=== PATIENT | male | born 1930 | race Caucasian/White ===

== ENCOUNTER 2017-01-14 18:23 | Emergency (ER) | payer OTHER, BC ==
[2017-01-14 18:33] VITALS: BP 198/97; PULSE 67; RESP 16; TEMP 99.1; O2SAT 96
--- NOTE | 2017-01-14 19:19 | EDPHY ---
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 Patient's O2 was dressing was seen by his surgeon today who put a pressure dressing. Patient states he went home was doing well but started bleeding through again and has soaked his dressing. Denies any pain. No numbness or tingling. He takes an aspirin his not otherwise on any blood thinners. Not lightheaded. ROS: 10 point Review of Systems is negative except as noted in the HPI. Social History: [No] smoking, [no] alcohol, [ no recreational drug use] Family History: [non-contributory] Physical Exam: General: Awake, alert, no acute distress Left leg: Patient has a large skin defect in his left calf secondary to his melanoma resection. Is to the muscle fascia layer. There is scant amount of oozing. Sutures are intact in the surrounding area. Dressings were sent. No erythema or discharge. Neuro: Cranial nerves 2-12 intact. Sensations intact in bilateral upper lower extremities. - Personal History Current Tetanus/Diphtheria Vaccine: Unsure Current Tetanus Diphtheria and Acellular Pertussis (TDAP): Unsure - Medical/Surgical History Hx Asthma: No Hx Chronic Respiratory Disease: No Hx Diabetes: No Hx Cardiac Disease: No Hx Renal Disease: No Hx Cirrhosis: No Hx Alcoholism: No Hx HIV/AIDS: No Hx Splenectomy or Spleen Trauma: No - Social History Smoking Status: Never smoked Constitutional: Initial Vital Signs Temperature (C) 37.3 C 01/14/17 18:30 Heart Rate 67 01/14/17 18:30 Respiratory Rate 16 01/14/17 18:30 Blood Pressure 198/97 H 01/14/17 18:30 O2 Sat (%) 96 01/14/17 18:30 O2 Delivery Mode Room Air Allergies/Adverse Reactions: Opioids - Morphine Analogues Allergy (Verified 01/14/17 18:33) Penicillins Allergy (Verified 01/14/17 18:33) Medical Decision Making ED Course/Re-evaluation: I redressed the wound with surgery foam covered by a a nonadherent dressing, gauze and Coban for pressure dressing. Patient was or but had no further bleeding emergency department. He was discharge instructions follow up with surgeon in 2-3 days for recheck. He will return if has any further bleeding or any other concerns. Departure - Departure Disposition: Home, Routine, Self-Care Clinical Impression: Bleeding from wound Condition: Good Instructions: Postoperative Bleeding (ED) Additional Instructions: Your surgical site has been dressed with surgifoam, a nonadherent dressing, gauze and wrapped with Coban. Follow up with her surgeon in 2-3 days for wound check. Return to the emergency department for continued bleeding, worsening pain, discoloration or coldness of her left lower leg or foot, fevers, chills, or any other concerns. Referrals: NONE *PRIMARY CARE P,. [Primary Care Provider] - As per Instructions
== END 2017-01-14 19:22 | disposition home or self-care (01) ==
DX: L76.21 Postprocedural hemorrhage of skin and subcutaneous tissue following a dermatologic procedure (principal)

== ENCOUNTER → 2017-04-08 | Outpatient (CLI) | payer OTHER, BC | LOC: FIMAGING 14:26 | PROVIDERS: ATTEND Physician Assistant | DX: M25.511 Pain in right shoulder (principal); M19.011 Primary osteoarthritis, right shoulder; M25.411 Effusion, right shoulder; M24.011 Loose body in right shoulder; M75.111 Incomplete rotator cuff tear or rupture of right shoulder, not specified as traumatic ==

== ENCOUNTER → 2017-07-13 | Outpatient (CLI) | payer OTHER, BC | LOC: BMCIMAGING 08:39 | PROVIDERS: ATTEND Internal Medicine | DX: I71.4 Abdominal aortic aneurysm, without rupture (principal) ==

== ENCOUNTER 2017-09-07 10:19 | Emergency (ER) | payer OTHER, BC ==
--- NOTE | 2017-09-07 10:38 | CPEKG ---
Heart Rate: 71 RR Interval: 845 P-R Interval: 168 QRSD Interval: 152 QT Interval: 440 QTC Interval: 479 P Rosebud: 25 QRS Rosebud: -61 T Wave Rosebud: 27 EKG Severity - ABNORMAL ECG - EKG Impression: SINUS RHYTHM EKG Impression: RBBB AND LAFB Electronically Signed By: Pancho Wyatt 07-Sep-2017 11:07:22
--- NOTE | 2017-09-07 10:45 | EDPHY ---
H & P Stated Complaint: l upper abd/l cp x 1 month post surg skin cancer/hx aortic aneurysm Time Seen by Provider: 09/07/17 10:33 - Personal History Current Tetanus/Diphtheria Vaccine: Yes - Medical/Surgical History Hx Asthma: No Hx Chronic Respiratory Disease: No Hx Diabetes: No Hx Cardiac Disease: No Hx Renal Disease: No Hx Cirrhosis: No Hx Alcoholism: No Hx HIV/AIDS: No Hx Splenectomy or Spleen Trauma: No Other PMH: aortic aneurysm/ - Social History Smoking Status: Never smoked Constitutional: Initial Vital Signs Temperature (C) 36.5 C 09/07/17 10:23 Heart Rate 90 09/07/17 10:23 Respiratory Rate 17 09/07/17 10:23 Blood Pressure 181/100 H 09/07/17 10:23 O2 Sat (%) 96 09/07/17 10:23 O2 Delivery Mode Room Air Allergies/Adverse Reactions: Opioids - Morphine Analogues Allergy (Verified 09/07/17 10:21) Penicillins Allergy (Verified 09/07/17 10:21) Home Medications: Medication Instructions Recorded Areds 09/07/17 Atorvastatin Calcium 09/07/17 Medical Decision Making - Diagnostics Imaging Results: Imaging Impressions Chest X-Ray 09/07/17 10:57 Impression: Probable COPD with no definite acute findings. Abdomen CT 09/07/17 11:03 Impression: 1. There are numerous shotty upper abdominal lymph nodes, however with short axis diameters of under 1 cm, and a normal-sized spleen. Correlation with serum CBC with differential is nonetheless suggested, and if normal, repeat CT evaluation in 6 months to assure stability. 2. Small hiatal hernia. 3. There is a stable 3.0 cm infrarenal abdominal aortic aneurysm. 4. Sigmoid colon diverticulosis, without active diverticulitis. Findings were discussed with Pancho Wyatt MD at 12:25, on 09/07/2017. Imaging: Discussed imaging studies w/ salesperson driver Radiologist, I viewed and interpreted images myself ED Course/Re-evaluation: CHIEF COMPLAINT: Chest/rib pain HISTORY OF PRESENT ILLNESS: The patient is an 86 y/o male arriving with his complaining of intermittent chest/rib pain. 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 The pain is localized to the area near the excision and occasionally radiates up his left chest well slightly. He was reevaluated by his pyrotechnics press tender for this and advised to get a cardiac evaluation, but decided to wait and see if it would improve. Over the last week this pain has remained intermittent, but become increasingly severe. He describes it as dull and sometimes "burning" as various times. Pain is worse with palpation. He notes he had a negative PET scan last fall following melanoma resections. REVIEW OF SYSTEMS: A 10 point review of systems was performed and is negative with the exception of the elements mentioned in the history of present illness. PHYSICAL EXAM: HR, BP, O2 Sat, RR. Temp noted General Appearance: Alert, well hydrated, appropriate, and non-toxic appearing. Head: Atraumatic without scalp tenderness or obvious injury Eyes: Pupils equal, round, reactive to light and accommodation, EOMI, no trauma , no injection. Nose: Atraumatic, no rhinorrhea, clear. Throat: Mucus membranes moist. Neck: Supple. Respiratory: No retractions, no distress, no wheezes, and no accessory muscle use. Lungs are clear to auscultation bilaterally. Cardiovascular: Regular rate and rhythm, no murmurs, rubs, or gallops. Good capillary refill all extremities. Chest: Tenderness along costal border of 12th rib just left of xiphoid process. Gastrointestinal: Abdomen is soft, nontender, non-distended, no masses, no rebound, no guarding, no peritoneal signs. Musculoskeletal: Normal active ROM of all extremities, atraumatic. Neurological: Alert, appropriate, and interactive. The patient has non-focal cranial nerves, motor, sensory, and cerebellar exam. Skin: No rashes, good turgor, no nodules on palpation. Past medical history: Macular degeneration, aortic aneurysm Past surgical history: Multiple squamous cell and melanoma skin cancer resections Family history: Noncontributory Social history: at bedside. Lives in [place]. Retired. DIAGNOSTICS/PROCEDURES/CRITICAL CARE TIME: Chest x-ray: nothing acute Abdominal CT: numerous shotty lymph nodes, recommend follow up scan in 6 months The 12 lead EKG was interpreted by myself. Sinus mechanism rate 71, RBBB and LAFB. See hard copy and/or "tracemaster" electronic copy for interpretation. DIFFERENTIAL DIAGNOSIS: The differential diagnosis for the patient's chest pain included but was not limited to skin cancer, lymphadenopathy, shingles, myocardial ischemia, pulmonary embolus, chest wall pain, pleural inflammation, and pulmonary infectious causes. MEDICAL DECISION MAKING: This is a 86 y/o male with history of squamous cell and melanoma resections who presents with lower chest pain at the site of a squamous cell resection 1.5 months ago. Pain is reproducible with palpation along the costal border of the 12th rib just left of the xiphoid process. No visible trauma or lesions. Lungs are clear. Doubt cardiac etiology for symptoms, need to rule out metastatic disease. Plan for IV, labs, EKG, chest x-ray, abdominal CT. Chest x-ray, labs, and EKG are unremarkable. CT shows several shotty lymph nodes , recommended follow up scan in 6 months. Reassessed patient and discussed findings. He is comfortable with plan for discharge home and outpatient followup as needed. Return precautions discussed. - Data Points Laboratory Results: Laboratory Results 09/07/17 10:35 09/07/17 10:35 09/07/17 09/07/17 09/07/17 10:35 10:35 10:35 WBC 6.93 10^3/uL 10^3/uL (3.80-9.50) RBC 4.08 10^6/uL L 10^6/uL (4.40-6.38) Hgb 14.0 g/dL g/dL (13.7-17.5) Hct 39.6 % L % (40.0-51.0) MCV 97.1 fL fL (81.5-99.8) MCH 34.3 pg H pg (27.9-34.1) MCHC 35.4 g/dL g/dL (32.4-36.7) RDW 12.3 % % (11.5-15.2) Plt Count 200 10^3/uL 10^3/uL (150-400) MPV 8.4 fL L fL (8.7-11.7) Neut % (Auto) 47.1 % % (39.3-74.2) Lymph % (Auto) 40.1 % % (15.0-45.0) Ransom % (Auto) 10.7 % % (4.5-13.0) Eos % (Auto) 1.7 % % (0.6-7.6) Baso % (Auto) 0.3 % % (0.3-1.7) Nucleat RBC Rel Count 0.0 % % (0.0-0.2) Absolute Neuts (auto) 3.26 10^3/uL 10^3/uL (1.70-6.50) Absolute Lymphs (auto) 2.78 10^3/uL 10^3/uL (1.00-3.00) Absolute Monos (auto) 0.74 10^3/uL 10^3/uL (0.30-0.80) Absolute Eos (auto) 0.12 10^3/uL 10^3/uL (0.03-0.40) Absolute Basos (auto) 0.02 10^3/uL 10^3/uL (0.02-0.10) Absolute Nucleated RBC 0.00 10^3/uL 10^3/uL (0-0.01) Immature Gran % 0.1 % % (0.0-1.1) Immature Gran # 0.01 10^3/uL 10^3/uL (0.00-0.10) Sodium 142 mEq/L mEq/L (135-145) Potassium 4.1 mEq/L mEq/L (3.3-5.0) Chloride 106 mEq/L mEq/L (97-110) Carbon Dioxide 23 mEq/l mEq/l (22-31) Anion Gap 13 mEq/L mEq/L (8-16) BUN 18 mg/dL mg/dL (7-23) Creatinine 1.0 mg/dL mg/dL (0.7-1.3) Estimated GFR > 60 Glucose 116 mg/dL H mg/dL (70-100) Calcium 9.3 mg/dL mg/dL (8.5-10.4) Total Bilirubin 1.1 mg/dL mg/dL (0.1-1.4) Conjugated Bilirubin 0.4 mg/dL mg/dL (0.0-0.5) Unconjugated Bilirubin 0.7 mg/dL mg/dL (0.0-1.1) AST 47 IU/L IU/L (17-59) ALT 44 IU/L IU/L (21-72) Alkaline Phosphatase 86 IU/L IU/L (38-126) Troponin I 0.017 ng/mL ng/mL (0.000-0.034) Total Protein 6.9 g/dL g/dL (6.3-8.2) Albumin 4.1 g/dL g/dL (3.5-5.0) Lipase 108 IU/L IU/L (23-300) Departure - Departure Disposition: Home, Routine, Self-Care Clinical Impression: Lymphadenopathy, borderline Condition: Good Instructions: Lymphadenopathy (ED) Additional Instructions: 1. Follow up with your primary care provider this week for continued symptoms. 2. There were some slightly large lymphnodes on the CT you had performed today. Our radiologist recommends a follow up abdominal CT scan in 6 months to reevaluate these. 3. Return to the ED for any worsening of condition. Referrals: Shannon Baez MD [Primary Care Provider] - As per Instructions Report Scribed for: Pancho Wyatt Report Scribed by: Codi French Date of Report: 09/07/17 Time of Report: 12:30
[2017-09-07 11:03] LABS: PLATELET COUNT 200 10^3/uL (150-400)
[2017-09-07] MEDS ORDERED: IOPAMIDOL (ISOVUE-300) 100 ML BTL ONE (11:30)
[2017-09-07 12:51] VITALS: BP 155/83
== END 2017-09-07 12:50 | disposition home or self-care (01) ==
DX: R59.1 Generalized enlarged lymph nodes (principal)
CPT/HCPCS: 71046; 74177; 93005; 99285; Q9967

== ENCOUNTER 2018-01-13 17:25 | Observation (INO) | payer OTHER, BC ==
--- NOTE | 2018-01-13 17:57 | EDPHY ---
H & P Time Seen by Provider: 01/13/18 17:56 HPI/ROS: CHIEF COMPLAINT: Dizziness HISTORY OF PRESENT ILLNESS: 87-year-old man is scheduled to have aortic valve replacement appointment on Thursday as he has known aortic stenosis with a tight outlet and apparently high gradient. He woke up today at 7:30 a.m. With a sense of dizziness which she describes to me as "vertigo, spinning, woozy."He tells me that he did not actually have syncope or fainting. He does not have lightheadedness or presyncope. It is worse when he moves his head or sits up. This morning it was very mild and he was able to walk the dog and actually do 5- 6 laps in the pool but over the past couple hours the symptoms become very severe and he is now barely able to walk. Not associated with vomiting, worse with movement as above. REVIEW OF SYSTEMS: Eye: no change in vision ENT: no sore throat Cardiac: no chest pain or syncope Pulmonary: no cough or SOB Abdomen: no vomiting, diarrhea, abdominal pain Musculoskeletal: Chronic right shoulder pain, unchanged Skin: no rash Neuro: Mild occipital headache but no neck pain. Constitutional: no fever : no urinary symptoms A comprehensive 10 point review of systems is otherwise negative aside from elements mentioned in the history of present illness. PAST MEDICAL HISTORY: Includes squamous cell cancer, melanoma, aortic stenosis , macular degeneration. Social history: Here with his General Appearance: Alert and conversant, cooperative. Eyes: No scleral icterus. Pupils equal reactive extraocular motion intact. No nystagmus now. ENT, Mouth: Normal mucous membranes. Normal tympanic membranes. Respiratory: Normal respiratory effort, breath sounds equal, lungs are clear to auscultation. Cardiovascular: Regular rate and rhythm. 4-6 systolic murmur right upper sternal border. Gastrointestinal: Abdomen is soft and non tender. Neurological: Alert, face symmetric, normal motor and sensory in extremities. Finger to nose normal bilaterally although limited somewhat on the right arm because of shoulder pain. Speech fluent. Skin: Warm and dry, no rashes. Musculoskeletal: No peripheral edema. Psychiatric: Not agitated. Emergency Department course/MDM: Oral meclizine, noncontrast head CT to evaluate for possibility of cerebellar bleed given vertigo and mild posterior headache. Admission for control of symptoms; very unsteady on his feet per the , likely peripheral vertigo but very symptomatic and high fall risk especially with underlying aortic stenosis. 192: Results discussed with the patient. Negative noncontrast head CT. Smoking Status: Never smoked Constitutional: Initial Vital Signs Temperature (C) 36.5 C 01/13/18 17:30 Heart Rate 69 01/13/18 17:30 Respiratory Rate 18 01/13/18 17:30 Blood Pressure 166/87 H 01/13/18 17:30 O2 Sat (%) 98 01/13/18 17:30 O2 Delivery Mode Room Air Allergies/Adverse Reactions: Opioids - Morphine Analogues Allergy (Verified 01/13/18 17:29) Vomiting Penicillins Allergy (Verified 01/13/18 17:29) Unknown Home Medications: Medication Instructions Recorded Atorvastatin Calcium [Lipitor 40 80 mg PO DAILY 09/07/17 mg (*)] C/E/Zn/Cu/OM3/DHA/EPA/LUT/ZEAX 2 each PO BID 09/07/17 [Preservision Areds 2 Softgel] Acetaminophen [Tylenol 325mg (*)] 325 mg PO DAILY PRN 12/01/17 Glucosamine Sulfate [Glucosamine 500 mg PO BID 12/01/17 Sulfate 500 MG (*)] [place]-3 Fatty Acids [Fish Oil 1000 1,000 mg PO BID 12/01/17 mg (*)] Latanoprost 0.005% [Xalatan 0.005% 1 drops RTEYE DAILY 12/02/17 (*)] Famotidine [Pepcid 20 MG (*)] 20 mg PO DAILY PRN 01/13/18 Medical Decision Making - Diagnostics EKG Interpretation: 12-lead EKG interpreted by me; official reading is in computer system. My interpretation is sinus rhythm with right bundle branch block and left anterior fascicular block. Imaging Results: Imaging Impressions Head CT 01/13/18 18:12 Impression: There is no acute intracranial abnormality identified on this unenhanced CT evaluation. If there is further clinical concern regarding the patient's symptoms, MR imaging is suggested, if not otherwise contraindicated. Findings were discussed with JULIO CÉSAR JAIMES MD at 19:07, on 01/13/2018. Imaging: Discussed imaging studies w/ yardage caller Radiologist Differential Diagnosis: Differential diagnosis considered for dizziness including but not limited to peripheral and central causes of vertigo, aortic or vertebral dissection, orthostatic causes including dehydration, and blood loss. Consult/Admit Bed Type: [facility] - Data Points Laboratory Results: Laboratory Results 01/13/18 17:56 18 17:56 18 18 18 17:56 17:56 17:56 WBC 8.59 10^3/uL 10^3/uL (3.80-9.50) RBC 4.10 10^6/uL L 10^6/uL (4.40-6.38) Hgb 13.9 g/dL g/dL (13.7-17.5) Hct 40.0 % % (40.0-51.0) MCV 97.6 fL fL (81.5-99.8) MCH 33.9 pg pg (27.9-34.1) MCHC 34.8 g/dL g/dL (32.4-36.7) RDW 12.6 % % (11.5-15.2) Plt Count 201 10^3/uL 10^3/uL (150-400) MPV 8.5 fL L fL (8.7-11.7) Neut % (Auto) 43.9 % % (39.3-74.2) Lymph % (Auto) 40.3 % % (15.0-45.0) Sherman % (Auto) 14.0 % H % (4.5-13.0) Eos % (Auto) 1.3 % % (0.6-7.6) Baso % (Auto) 0.2 % L % (0.3-1.7) Nucleat RBC Rel Count 0.0 % % (0.0-0.2) Absolute Neuts (auto) 3.77 10^3/uL 10^3/uL (1.70-6.50) Absolute Lymphs (auto) 3.46 10^3/uL H 10^3/uL (1.00-3.00) Absolute Monos (auto) 1.20 10^3/uL H 10^3/uL (0.30-0.80) Absolute Eos (auto) 0.11 10^3/uL 10^3/uL (0.03-0.40) Absolute Basos (auto) 0.02 10^3/uL 10^3/uL (0.02-0.10) Absolute Nucleated RBC 0.00 10^3/uL 10^3/uL (0-0.01) Immature Gran % 0.3 % % (0.0-1.1) Immature Gran # 0.03 10^3/uL 10^3/uL (0.00-0.10) Sodium 139 mEq/L mEq/L (135-145) Potassium 4.1 mEq/L mEq/L (3.3-5.0) Chloride 105 mEq/L mEq/L (97-110) Carbon Dioxide 24 mEq/l mEq/l (22-31) Anion Gap 10 mEq/L mEq/L (8-16) BUN 22 mg/dL mg/dL (7-23) Creatinine 1.0 mg/dL mg/dL (0.7-1.3) Estimated GFR > 60 Glucose 97 mg/dL mg/dL (70-100) Calcium 9.4 mg/dL mg/dL (8.5-10.4) Troponin I Pending Medications Given: Discontinued Medications Meclizine HCl (Meclizine Hcl) 25 mg PO EDNOW ONE Stop: 01/13/18 18:13 Last Admin: 01/13/18 18:24 Dose: 25 mg Departure - Departure Disposition: [facility] Clinical Impression: Vertigo Condition: Good
[2018-01-13] MEDS ORDERED: MECLIZINE HCL 25 MG TAB PO ONE (18:12)
--- NOTE | 2018-01-13 18:17 | CPEKG ---
Test Reason : OPEN Blood Pressure : / mmHG Vent. Rate : 060 BPM Atrial Rate : 060 BPM P-R Int : 154 ms QRS Dur : 162 ms QT Int : 461 ms P-R-T Axes : 155 241 138 degrees QTc Int : 461 ms Sinus or ectopic atrial rhythm RBBB and LAFB Abnormal T, consider ischemia, lateral leads Confirmed by Chalo Dutton ([id number]) on 01/13/2018 6:16:39 PM Referred By: Confirmed By:Chlao Dutton
[2018-01-13 18:18] LABS: PLATELET COUNT 201 10^3/uL (150-400)
[2018-01-13] MEDS ORDERED: ACETAMINOPHEN 325 MG TAB PO PRN (21:21)
[2018-01-13] MEDS ORDERED: ONDANSETRON 4 MG/2 ML VIAL IVP PRN (21:21)
[2018-01-13] MEDS ORDERED: ONDANSETRON DISINTEGRATING 4 MG TAB PO PRN (21:21)
[2018-01-13] MEDS ORDERED: MECLIZINE HCL 12.5 MG TAB PO PRN (21:23)
[2018-01-13] MEDS ORDERED: FAMOTIDINE 20 MG TAB PO PRN (21:23)
[2018-01-13] MEDS ORDERED: NS 1,000 ML IV SCH (21:30)
--- NOTE | 2018-01-13 21:59 | GHP ---
DATE OF ADMISSION: 01/13/2018 The patient is a pleasant 87-year-old gentleman with a history of recently diagnosed aortic stenosis, who presents with vertigo-like symptoms. He is scheduled for a shoulder replacement. He had a preo perative evaluation that revealed a systolic murmur. Subsequent evaluation revealed a critical aorti c stenosis with a valve area of 0.95 cm gradient, unknown whom he has been cared for at [facility]. He is scheduled to see somebody next week to talk about TAVR. It does not seem that he h as spoken to a cardiothoracic surgeon. The patient actively exercises. Today he swam. He did not a ctually feel great swimming and he had some vertigo-like symptoms. He does have a history of periphe ral vertigo and he has felt somewhat to that, but when I really dig down to the history, it is not en tirely clear that the room was spinning, and there may have been some orthostatic-like symptoms. It sounds like his workout was limited today by generalized fatigue. He does not have lower extremity e erna. He does not have angina though he does note some lateral left-sided chest pain that did occur at 1 time. He does not have a history of coronary disease. He has hyperlipidemia, takes a statin. He has been physically active all his life, having run 25 marathons and being a daily swimmer. REVIEW OF SYSTEMS: Complete 10-point review of systems conducted and negative except as noted in the HPI. PAST MEDICAL HISTORY: Macular degeneration with severe visual impairment, critical aortic stenosis, history of vertigo, hyperlipidemia. ALLERGIES: Opioids, penicillins. HOME MEDICATIONS: Tylenol, atorvastatin, PreserVision, famotidine, glucosamine, latanoprost, fish oi l. SOCIAL HISTORY: He is a retired airplane electrical repairer. Nonsmoker, nondrinker. . Lives in his own house independently and proficient in ADLs. PHYSICAL EXAMINATION: VITAL SIGNS: Temp 36.8, blood pressure 175/84, pulse 60, breathing 16 times a minute, 98% on room air. GENERAL: No acute distress. HEENT: Sclerae anicteric. Oropharynx clear . Mucous membranes moist. NECK: Supple without lymphadenopathy or JVD. LUNGS: Clear to auscultat ion bilaterally. HEART: S1, S2 with a 4/6 systolic ejection murmur heard best at the right upper st ernal border. ABDOMEN: Soft, nontender, nondistended. LOWER EXTREMITIES: Without edema. Calves n ontender. SKIN: Without rash. NEUROLOGIC: Nonfocal. LABS AND IMAGING: White count 9, hematocrit 40, platelets are 201. Chem-7 is normal. Troponin is 0 .021. EKG, interpreted by me, shows sinus at 60, with left axis deviation, right bundle branch and left ant erior fascicular block pattern. There is no ST or T-wave changes. There is no prior for comparison. Head CT shows no acute intracranial abnormality. I discussed case with Dr. Chalo Dutton. ASSESSMENT/PLAN: 87-year-old gentleman with severe aortic stenosis, presents with possible vertigo. 1. Vertigo. I do have some concerns about that this is the actual diagnosis given his critical aort ic stenosis. That said, he did have improvement of his symptoms with meclizine. He does not have ny stagmus on exam with lateral eye movement nor with rapid turning of his head. He did not clearly joy cribe the room spinning. That said, we will continue p.r.n. meclizine. Will have Physical Therapy a nd Occupational Therapy see him. 2. Aortic stenosis. He has an outpatient plan through [facility] where he gets his care to evaluate this, so I am not going to reinvent the workup at this time. That said, I am going to c heck orthostatic vital signs and trend his troponin and follow him on telemetry. 3. If these things become more concerning, then further workup may be a good idea. 4. Macular degeneration. Continue his eye drops. 5. Hyperlipidemia. Continue statin. 6. Prophylaxis. Sequential compression devices. The patient is admitted observation status. DISPOSITION: Observation. /[id number]/MODL
[2018-01-14] MEDS ORDERED: OMEGA-3 FATTY ACIDS 1,000 MG CAP PO SCH (09:00)
[2018-01-14] MEDS ORDERED: ATORVASTATIN CALCIUM 40 MG TAB PO SCH (09:00)
[2018-01-14] MEDS ORDERED: LATANOPROST 0.005% 2.5 ML OPHT DROPS RTEYE SCH (09:00)
[2018-01-14] MEDS ORDERED: GLUCOSAMINE SULF 500 MG CAP PO SCH (09:00)
[2018-01-14] MEDS ORDERED: PRESERVISION AREDS2 FORMULA EYE VIT 1 EACH PO SCH (09:00)
--- NOTE | 2018-01-14 10:29 | ASMTCMCOM ---
CM Note CM Note Notes: Patient admitted with vertigo overlaid on a new dx of aortic stenosis. He is being followed at [facility] for this. His vertigo symptoms are resolving with Meclizine. PT/OT have worked with him and cleared him for home; he is normally very active. PT did mention that cardiac rehab might be appropriate. Will pass along to hospitalist. Date Signed: 01/14/2018 10:28 AM Electronically Signed By:Rosa Nazario RN
--- NOTE | 2018-01-14 12:30 | PDDCSUM ---
Discharge Summary Discharge Summary: Date of Admission: 01/13/2018 Date of Discharge: 01/14/2018 Consults: N/A Followup: Cardiology appointment on Thursday with Dr. Garay Hospital Course Problem List: Vertigo - Feeling dizzy, LH on admission, has had episodes of vertigo in the past - Orthostatic vitals negative - Symptoms improved with Meclazine - Symptoms may be related to aortic stenosis, he has appt on Thursday for TAVR evaluation - Head CT normal on admission Aortic Stenosis - Recently diagnosed - Followup with cardiology on Thursday with Dr. Garay for TAVR evaluation - Discussed with patient if he would like to be seen by cardiology while IP which he deferred HLD - Continue home statin Time spent on discharge was >35 minutes with >50% of time spent on patient education and counseling
--- NOTE | 2018-01-14 13:41 | ASMTCMCOM ---
CM Note CM Note Notes: Pt [facility] Medical Education Specialist Dang [phone] came to visit pt. Dang will set up an [employer] functional eval for [employer], apparently this eval did not happen for some reason after pt d/c from [facility] in November 2017. D/c plan remains home with [facility] Date Signed: 01/14/2018 01:40 PM Electronically Signed By:RADAMES Hernandez
--- NOTE | 2018-01-14 13:54 | ASMTCMCOM ---
CM Note CM Note Notes: Please disregard CM note 01/14/18 13:40 it does not apply to pt Date Signed: 01/14/2018 01:53 PM Electronically Signed By:RADAMES Hernandez
--- NOTE | 2018-01-14 13:55 | ASMTLACE ---
LACE Length of stay for Answers: 2 days current admission Acuity / Level of Answers: No Care: Did the patient have an inpatient admission? Comorbidities - select Answers: Other Notes: Macular degeneration; H LD all that apply # of Emergency department Answers: 1-2 visits in the last 6 months Score: 4 Date Signed: 01/14/2018 01:54 PM Electronically Signed By:RADAMES Hernandez
[2018-01-14 14:15] VITALS: BP 155/78
== END 2018-01-14 15:29 | disposition home or self-care (01) ==
LOC: F3N 20:35
PROVIDERS: ADMIT Internal Medicine; ATTEND Internal Medicine
DX: R42 Dizziness and giddiness (principal); I35.0 Nonrheumatic aortic (valve) stenosis; E78.5 Hyperlipidemia, unspecified; H35.30 Unspecified macular degeneration
CPT/HCPCS: 70450; 93005; 97112; 97161; 97165; 97530; 99285; G0378; G8978; G8979; G8987; G8988; G8989

== ENCOUNTER 2018-01-27 07:20 | Day surgery (SDC) | payer OTHER, BC ==
[~2018-01-27 07:20] MED LIST: ASPIRIN EC 325 MG TAB PO ONE; DIAZEPAM 5 MG TAB PO ONE; FAMOTIDINE 20 MG TAB PO ONE; NS 1,000 ML IV ONE; diphenhydrAMINE 25 MG CAP PO ONE
[2018-01-27] MEDS ORDERED: FAMOTIDINE 20 MG TAB ONE (07:46)
[2018-01-27] MEDS ORDERED: ASPIRIN EC 325 MG TAB PO ONE (07:46)
[2018-01-27] MEDS ORDERED: diphenhydrAMINE 25 MG CAP PO ONE (07:46)
[2018-01-27] MEDS ORDERED: DIAZEPAM 5 MG TAB ONE (07:47)
[2018-01-27 08:16] LABS: PLATELET COUNT 181 10^3/uL (150-400)
[2018-01-27 08:20] LABS: INR 0.93 (0.83-1.16); PROTIME(PATIENT) 12.7 SEC (12.0-15.0)
[2018-01-27] MEDS ORDERED: LIDOCAINE 1% 300 MG/30 ML SDV ONE (09:06)
[2018-01-27] MEDS ORDERED: IOPAMIDOL (ISOVUE-370) 150 ML BTL IV ONE (09:07)
[2018-01-27] MEDS ORDERED: MIDAZOLAM 2 MG/2 ML VIAL ONE (09:07)
--- NOTE | 2018-01-27 09:19 | PDPROPOC ---
Sedation Plan of Care Sedation Plan of Care: mental status noted, patient educated of risks, benefits , alternatives, patient can tolerate sedation ASA Classification: ASA 2 Planned drugs: fentanyl, midazolam Mallampati Score: Class 2 Mallampati Reference Image: Patient passed 3-3-2 rule?: Yes
--- NOTE | 2018-01-27 09:19 | PDHPUP ---
History & Physical Update H&P update statement: This history and physical update is based on an assessment of the patient which was completed after admission or registration (within 24 hours), but prior to the surgery/procedure. H&P update: H&P reviewed & patient examined, no change in patient's condition since H&P completed
[2018-01-27] MEDS ORDERED: CLOPIDOGREL BISULFATE 75 MG TAB ONE (09:27)
[2018-01-27] MEDS ORDERED: CLOPIDOGREL BISULFATE 75 MG TAB PO ONE (09:30)
[2018-01-27] MEDS ORDERED: fentaNYL 100 MCG/2 ML INJ ONE (10:04)
[2018-01-27] MEDS ORDERED: ATROPINE SULFATE 1 MG/10 ML SYR IVP PRN (10:30)
[2018-01-27] MEDS ORDERED: ONDANSETRON 4 MG/2 ML VIAL IVP PRN (10:30)
[2018-01-27] MEDS ORDERED: NITROGLYCERIN 0.4 MG BTL SL PRN (10:30)
--- NOTE | 2018-01-27 11:09 | CPIP ---
DATE OF PROCEDURE: 01/27/2018 INDICATION FOR PROCEDURE: Critical aortic stenosis. PROCEDURE: 1. Nonselective left groin sheathogram. 2. 7-Gabonese sheath left common femoral vein. 3. Right heart catheterization with [place]-Jody catheter. 4. Bilateral selective coronary angiography. 5. Abdominal aortogram. HISTORY: Briefly, this is an 87-year-old male with history of critical aortic stenosis, worsening di nella h[place] who was being worked up for potential TAVR. DESCRIPTION OF PROCEDURE: After informed consent was obtained, the patient was brought to [facility] where the left groin was prepped and draped in sterile fashion. Using lidocaine, a short 6-Gabonese sheath w as introduced in the left common femoral artery verified angiographically, upsized to a 7-Gabonese aguilar th left common femoral vein. Through the 7-Gabonese sheath, a [place]-Jody catheter was advanced. Wedge pressure was mean of 16, A-wave 20, V-wave 26, PA pressure systolic 35, diastolic 12, mean of 22. RV pressure systolic 39, diastolic 4, end of 9, RA pressure mean of 8, A-wave 13, V-wave 10. Cardiac o utput was measured to be 4.5 with a Jono index of 2.4. AO sat 98%. PA sat 74%. [place]-Jody catheter was then removed. At this time, given the tortuosity of the aortoiliac circulation, we decided to up size the 6-Gabonese sheath to a 25 cm sheath through a JR4 catheter and a stiff wire. After this was p erformed, a JL4 catheter was advanced to the left coronary artery. Images of the left coronary arter y revealed normal large left main. Left circumflex gave off a large bifurcating marginal system prox imally and there was a 3rd marginal in the mid body which was healthy and free of disease and termina ting into an AV groove of 4th marginal, which was healthy and free of disease. The LAD was healthy a nd free of disease giving off a medium to large diagonal artery in the midportion. After these image s were obtained, the JR4 catheter was removed. The JR4 catheter was advanced to the right coronary a rtery. Images of the right coronary artery revealed normal os, prox mid, RPDA and RPLS. After these images were obtained, a JR4 catheter was removed. The pigtail catheter was advanced to the distal d escending aorta where an abdominal aortogram was obtained which showed patent descending aorta. Ther e was an aneurysm of the distal aorta. There was widely patent common iliac, external and internal i liac arteries. , the pigtail catheter was then removed over the 0.035 wire. The left groi n was closed with manual pressure. Patient tolerated the procedure well with no complications. IMPRESSION: 1. Normal coronary arteries. 2. Normal cardiac output with normal pulmonic pressures. 3. abdominal aortic aneurysm with widely patent aortoiliac conduit. PLAN: The patient will have 3 hours bed rest. Will have a carotid ultrasound done later this dwayne person Discharged later this afternoon to follow up with us in the office to discuss potential TAVR in t he next week. /[id number]/MODL
--- NOTE | 2018-01-27 13:08 | ECHO ---
[email or web address] [address] [address] Main: [phone] Fax: Transthoracic Echocardiogram Name: SHIVANI BARRERA MR#: [id number] Study Date: 01/27/2018 Study Time: 08:12 AM Date of : 1930 Age: 87 year(s) Height: 177.8 cm (70 in.) Weight: 66.68 kg (147 lb.) BSA: 1.83 m2 Gender: Male Examination: Echo Indication: Image Quality: Adequate Contrast: Requested by: Edison Avalos BP: 148 mmHg/80 mmHg Heart Rate: Rhythm: Indication: Procedure Staff Postdoctoral Scholar: Veronica Sullivan RDCS Reading Physician: Edison Avalos MD Requesting Provider: Conclusions: Moderate concentric LV hypertrophy. EF is 62 %. Mild mitral valve regurgitation is present. Severe calcific aortic valve stenosis. Mild to moderate aortic valve regurgitation. Mild tricuspid regurgitation is present. Measurements: Chambers Valvular Assessment AV/MV Valvular Assessment TV/PV Normal Normal Normal Name Value Range Name Value Range Name Value Range Ao Soledad (2D): 3.3 cm (1.4 cm-2.6 AV Vmax: 4.84 m/s (1 m/s-1.7 TR Vmax: 1.89 mm/s ( - ) cm) m/s) TR PGmax: 14 mmHg ( - ) IVSd (2D): 1.6 cm (0.6 cm-1.1 AV maxP mmHg ( - ) syst. PAP: 19 mmHg ( - ) cm) AV meanP mmHg ( - ) PV Vmax: 0.92 m/s (0.6 m/s-0.9 LVDd (2D): 4.8 cm (4.2 cm-5.9 FINN (VTI): 0.8 cm ( - ) m/s) cm) MV E Vmax: 0.46 m/s ( - ) PV PGmax: 3 mmHg ( - ) LVDs (2D): 3.1 cm (2.1 cm-4 MV A Vmax: 0.95 m/s ( - ) cm) MV E/A: 0.48 ( - ) LVPWd (2D): 1.5 cm (0.6 cm-1 cm) MV PHT: 0.114 s ( - ) LVOTd 2.2 cm 2.2 cm mm MVA (PHT): 1.9 s ( - ) LVEF (BP): 62 % (>=55 %) RVDd(2D): 3.3 cm (1.9 cm-3.8 cmmm) Continued Measurements: Chambers Valvular Assessment AV/MV Valvular Assessment TV/PV Name Value Name Value Name Value Patient: SHIVANI BARRERA Study Date: 01/27/2018 Page 1 of 2 08:12 AM LADs: 3.6 cm MV DecTime: 356 m/s CVP (est.): 5 mmHg LADs Lon.4 cm MV E' Septal: 0.06 m/s LA Area: 22.0 cm2 MV E/E' Septal: 8.10 LA Volume: 78 ml MV E/E' Lateral: 9.50 LA Volume Index: 42.6 ml/m2 RA Area: 18.6 cm2 Additional Vessels Name Value Ao Ascendin.7 cm Inferior Vena Cava: 0.8 cm Findings: Left Ventricle: Normal size left ventricle. Moderate concentric LV hypertrophy. Normal global systolic LV function. EF is 62 %. No regional wall motion abnormality. Unable to assess diastolic dysfunction. Right Ventricle: Normal size right ventricle. Normal RV function. Left Atrium: The left atrium is moderately dilated. Right Atrium: The right atrium is borderline dilated. Mitral Valve: The mitral valve is normal in appearance and function. Mild mitral valve regurgitation is present. No mitral stenosis is present. Aortic Valve: The aortic valve is tri-leaflet. Restricted opening movement of the aortic valve is present. Severe calcific aortic valve stenosis. Mild to moderate aortic valve regurgitation. Tricuspid Valve: The tricuspid valve is normal in appearance and function. Mild tricuspid regurgitation is present. The pulmonary artery pressure is normal. Right ventricular systolic pressure measures 19mmHg. Pulmonic Valve: The pulmonic valve is normal in appearance and function. Trivial pulmonic valve regurgitation. Aorta: The aorta is normal. Normal size aortic root measuring 3.3 cm. Normal size ascending aorta measuring 3.7 cm. IVC: The IVC is normal sized. Pericardium: No pericardial effusion. No pleural effusion. (No Signature Object) Patient: SHIVANI BARRERA Study Date: 01/27/2018 Page 2 of 2 08:12 AM [id number]
--- NOTE | 2018-01-27 16:41 | CPEKG ---
Test Reason : OPEN Blood Pressure : / mmHG Vent. Rate : 070 BPM Atrial Rate : 070 BPM P-R Int : 153 ms QRS Dur : 166 ms QT Int : 450 ms P-R-T Axes : 030 -64 059 degrees QTc Int : 486 ms Sinus rhythm RBBB and LAFB Confirmed by Estrella Mclean ([id number]) on 01/27/2018 4:40:53 PM Referred By: Confirmed By:Estrella Mclean
== END 2018-01-27 14:20 | disposition home or self-care (01) ==
LOC: FCATH 07:20
PROVIDERS: ATTEND Internal Medicine Cardiovascular Disease
PROC: 4A023N6 Measurement of Cardiac Sampling and Pressure, Right Heart, Percutaneous Approach (ICD-10-PCS; principal; 2018-01-27)
PROC: B2111ZZ Fluoroscopy of Multiple Coronary Arteries using Low Osmolar Contrast (ICD-10-PCS; principal; 2018-01-27)
PROC: B3101ZZ Fluoroscopy of Thoracic Aorta using Low Osmolar Contrast (ICD-10-PCS; principal; 2018-01-27)
DX: I35.0 Nonrheumatic aortic (valve) stenosis (principal)
CPT/HCPCS: C1769; J1644; J2250; J3010; Q9967

== ENCOUNTER 2018-02-08 06:12 | Inpatient (IN) | payer OTHER, BC ==
[2018-02-08] MEDS ORDERED: NS 1,000 ML IV ONE (06:16)
[2018-02-08] MEDS ORDERED: CLINDAMYCIN 600 MG/DEXTROSE 50 ML IV ONE (06:45)
--- NOTE | 2018-02-08 06:49 | PDPROPOC ---
Sedation Plan of Care Sedation Plan of Care: mental status noted, patient educated of risks, benefits , alternatives ASA Classification: ASA 2 Planned drugs: other Mallampati Score: Class 2 Mallampati Reference Image: Patient passed 3-3-2 rule?: Yes
[2018-02-08] MEDS ORDERED: LIDOCAINE 1% 300 MG/30 ML SDV ONE (06:54)
[2018-02-08] MEDS ORDERED: IOPAMIDOL (ISOVUE-370) 150 ML BTL IV ONE (06:54)
--- NOTE | 2018-02-08 07:24 | PDANEPAE ---
ANE History of Present Illness severe s/f TAVR ANE Past Medical History - Cardiovascular History Hx Hypertension: No Hx Arrhythmias: No Hx Chest Pain: Yes Hx Coronary Artery / Peripheral Vascular Disease: No Hx CHF / Valvular Disease: Yes Hx Palpitations: No - Pulmonary History Hx COPD: No Hx Asthma/Reactive Airway Disease: No Hx Recent Upper Respiratory Infection: No Hx Oxygen in Use at Home: No Hx Sleep Apnea: No - Neurologic History Hx Cerebrovascular Accident: No Hx Seizures: No Hx Dementia: No - Endocrine History Hx Diabetes: No Endocrine History Comment: dyslipidemia - Renal History Hx Renal Disorders: No - Liver History Hx Hepatic Disorders: No - Neurological & Psychiatric Hx Hx Neurological and Psychiatric Disorders: No - Cancer History Hx Cancer: Yes Cancer History Comment: MELANOMA REMVL CHEST WALL. LT CALF - Congenital Disorder History Hx Congenital Disorders: No - GI History Hx Gastrointestinal Disorders: Yes - Chronic Pain History Chronic Pain: No - Surgical History Prior Surgeries: LT KNEE SCOPE. RT TOE TENDON REPAIRS. REMVL CHEST WALL MELANOMA. RT CLOSED FX TIB/FIB. DEVEN CATARACTS 2016 ANE Review of Systems Review of Systems: - Exercise capacity METS (RN): 3 METS ANE Patient History - Allergies Allergies/Adverse Reactions: Opioids - Morphine Analogues Allergy (Verified 01/13/18 17:29) Vomiting Penicillins Allergy (Verified 01/13/18 17:29) Unknown - Home Medications Home Medications: Atorvastatin Calcium [Lipitor 40 mg (*)] 80 mg PO DAILY 09/07/17 [Last Taken 07/12 06:00] C/E/Zn/Cu/OM3/DHA/EPA/LUT/ZEAX [Preservision Areds 2 Softgel] 2 each PO BID [Last Taken 02/06/18 17:00] Glucosamine Sulfate [Glucosamine Sulfate 500 MG (*)] 500 mg PO TID 12/01/17 [ Last Taken 01/22/18 21:00] Lorraine-3 Fatty Acids [Fish Oil 1000 mg (*)] 1,000 mg PO BID 12/01/17 [Last Taken 01/22/18 21:00] Latanoprost 0.005% [Xalatan 0.005% (*)] 1 drops RTEYE DAILY 12/02/17 [Last Taken 02/07/18 21:00] Ibuprofen [Motrin (*)] 200 mg PO TID PRN 01/27/18 [Last Taken 02/07/18 21:00] Meclizine HCl [Meclizine HCl 12.5 mg (*)] 25 mg PO DAILY PRN 01/27/18 [Last Taken 01/17/18 21:00] Ranitidine HCl [Zantac] 150 mg PO BID PRN 01/27/18 [Last Taken 02/07/18 21:00] - NPO status NPO Status: no food or drink >8 hours - Anes Hx Anes Hx: no prior problems - Smoking Hx Smoking Status: Never smoked - Alcohol Use Alcohol Use: Rarely - Family Anes Hx Family Anes Hx: none ANE Labs/Vital Signs - Vital Signs Height: 170.18 cm Weight: 75.75 kg ANE Physical Exam - Airway Neck exam: FROM Mallampati Score: Class 2 Mouth exam: poor dentition - Pulmonary Pulmonary: no respiratory distress - Cardiovascular Cardiovascular: regular rate and rhythym, systolic murmur - ASA Status ASA Status: III ANE Anesthesia Plan Anesthesia Plan: MAC
[2018-02-08] MEDS ORDERED: DEXMEDETOMIDINE HCL 400 MCG in NS 100 ML IV SCH (07:30)
[2018-02-08] MEDS ORDERED: ONDANSETRON 4 MG/2 ML VIAL ONE (07:37)
[2018-02-08] MEDS ORDERED: DEXAMETHASONE 4 MG/ML VIAL ONE ×2 (07:37)
[2018-02-08] MEDS ORDERED: LIDOCAINE 2% 100 MG/5 ML SYR ONE (07:37)
[2018-02-08] MEDS ORDERED: PROPOFOL/EMULSION 500 MG/50 ML BOTTLE IV ONE (07:38)
[2018-02-08] MEDS ORDERED: REMIFENTANIL HCL 1 MG VIAL ONE (07:38)
[2018-02-08] MEDS ORDERED: PHENYLEPHRINE HCL 100 MCG/ML SYR ONE (08:49)
[2018-02-08] MEDS ORDERED: PROTAMINE SULFATE 50 MG/5 ML VIAL IVP ONE (08:57)
[2018-02-08] MEDS ORDERED: hydrALAZINE 20 MG/ML VIAL IVP PRN (09:30)
[2018-02-08] MEDS ORDERED: ONDANSETRON DISINTEGRATING 4 MG TAB PO PRN (09:30)
[2018-02-08] MEDS ORDERED: ATROPINE SULFATE 1 MG/10 ML SYR IVP PRN (09:30)
[2018-02-08] MEDS ORDERED: ONDANSETRON 4 MG/2 ML VIAL IVP PRN (09:30)
--- NOTE | 2018-02-08 10:20 | ECHO ---
[email or web address] [place] [id number] Main: [phone] Fax: Transthoracic Echocardiogram Name: SHIVANI BARRERA MR#: [id number] Study Date: 02/08/2018 Study Time: 07:16 AM Date of : 1930 Age: 87 year(s) Height: ( ) Weight: ( ) BSA: Gender: Male Examination: Limited Echo Indication: Limited echocardiogram during TAVR Image Quality: Adequate Contrast: Requested by: Edison Avalos BP: / Heart Rate: Rhythm: Indication: Limited echocardiogram during TAVR Procedure Staff Refrigeration Mechanic: Natalie Rosen [facility] Reading Physician: Estrella Mclean MD Requesting Provider: Edison Avalos Conclusions: Normal size left ventricle. Normal global systolic LV function. Mild mitral valve regurgitation is present. Pre TAVR: AV 4.5m/s 49/80mmHg mean/max NDSI=.22 Post TAVR AV 2.0m/s 7/17 mmHg mean/max NDSI= .38 FINN 1.7cm2 AI post TAVR mild to moderate. No pericardial effusion. Measurements: Chambers Valvular Assessment AV/MV Valvular Assessment TV/PV Normal Normal Normal Name Value Range Name Value Range Name Value Range LVOTd 2.4 cm 2.4 cm mm AR (PHT): 599 ms ( - ) Continued Measurements: Valvular Assessment AV/MV Name Value AR Vmax: 2.67 cm/s Findings: Left Ventricle: Normal size left ventricle. Concentric LV hypertrophy. Normal global systolic LV function. Mitral Valve: Mild mitral valve regurgitation is present. Aortic Valve: Pre TAVR: AV 4.5m/s 49/80mmHg mean/max NDSI=.22 Post TAVR AV 2.0m/s 7/17 mmHg mean/max NDSI= .38 FINN 1.7cm2 AI post TAVR mild to moderate. Pericardium: Patient: SHIVANI BARRERA Study Date: 02/08/2018 Page 1 of 2 07:16 AM No pericardial effusion. There is pericardial fat. (No Signature Object) Patient: SHIVANI BARRERA Study Date: 02/08/2018 Page 2 of 2 07:16 AM [id number]
--- NOTE | 2018-02-08 11:34 | CPIP ---
DATE OF PROCEDURE: 02/08/2018 INDICATION FOR PROCEDURE: critical severe symptomatic aortic stenosis. PROCEDURE: 1. Left groin sheathogram. 2. Right groin sheathogram. 3. Balloon aortic valvuloplasty using 20 x 60 balloon. 4. Placement of Medtronic Evolut R 34 mm valve by the transfemoral route. HISTORY: Briefly, this is an 87-year-old male with history of critical symptomatic aortic stenosis, being deemed to be a suitable candidate for transfemoral TAVR. DESCRIPTION OF PROCEDURE: After informed consent was obtained, the patient was brought to the [facility] ere the patient was placed under MAC anesthesia. The patient was administered 600 of clindamycin IV prior to the case. Using local lidocaine, a short 6-Icelandic sheath introduced in the left femoral artery verified angiogr aphically. A 6-Icelandic sheath was placed in the right femoral artery after lidocaine and verified ang iographically. The left side was then upsized to an 8-Icelandic 25 cm sheath given the excessive tortuo sity of the iliac system. The right groin was then upsized to an 8-Icelandic sheath and a double Perclo se placement. A stiff wire was placed into the aorta. The right groin was then upsized to a 16-Icelandic sheath, Medt kate . Valve was crossed. The patient was administered heparin IV. The valve was clipped stiff Glidewire switched out for a pigtail catheter, switched out for Confida wire. Balloon aortic valvuloplasty commenced with a 23 x 60 balloon. This was on a tamara ent who weighed 180. After this was performed, the balloon was then pulled back. We then proceeded with placement of a Medtronic Evolut R 34 mm valve. This was then deployed successfully. Post-deployment, there was trivial to mild paravalvular leak noted with excellent hemodynamics. We d ecided this was verified with pigtail catheter in the LV for hemodynamic assessment. At this time, t he right groin was closed with a double Perclose. Left groin was closed an 8-Icelandic Angio-Seal. The patient tolerated the procedure well with no complications. IMPRESSION: Successful placement of Medtronic CoreValve Evolute R 34 by the transfemoral route. The patient admitted to PCU. Further orders following clinical course. /[id number]/MODL
--- NOTE | 2018-02-08 11:42 | PDMN ---
Medical Necessity Medical necessity: [facility] S1320 Aortic Valve Replacement, Transcatheter, 87 yo pt s /p TAVR [facility] only
--- NOTE | 2018-02-08 11:48 | POSTANESTH ---
Post Anesthetic Evaluation Cardiovascular Status: Normal, Stable Respiratory Status: Normal, Stable, Similar to Pre-op Cond., Tx Decrease in SpO2 Level of Consciousness/Mental Status: Can Participate in Eval Pain Control: Adequate, Prn Tx Ordered Nausea/Vomiting Control: Adequate, Prn Tx Ordered Complications Possibly Related to Anesthesia: None Noted
[2018-02-08] MEDS: ACETAMINOPHEN 325 MG TAB PO SCH ×3 (15:25→23:43)
--- NOTE | 2018-02-08 15:56 | GOP ---
DATE OF OPERATION: 02/08/2018 SURGEON: Huber Aquino DO EMPLOYEE'S REPRESENTATIVE: Drs. Aquino, Vinay, and Charbel PREOPERATIVE DIAGNOSIS: critical aortic stenosis. POSTOPERATIVE DIAGNOSIS: Critical aortic stenosis. PROCEDURE PERFORMED: Right common femoral artery deployment of Denis 34 mm Evolut R valve without difficulty. FINDINGS: DESCRIPTION OF PROCEDURE: After vascular access was obtained and wires were placed appropriately, I then placed the aortic valve post-dilation across the aortic anulus and under fluoroscopic and echo g hectordayamilethe deployed the valve with appropriate sizing, not encumbering the mitral valve and with minimal perivalvular leak. All 3 leaflets were noted to be moving. Dr. Avalos then closed the right and l eft groin. The patient was returned to recovery room in stable condition. SURGEON: Dr. Avalos /[id number]/MODL
[2018-02-08] MEDS ORDERED: MECLIZINE HCL 12.5 MG TAB PO PRN (18:19)
[2018-02-08] MEDS: OMEGA-3 FATTY ACIDS 1,000 MG CAP PO SCH (20:33)
[2018-02-08] MEDS: LATANOPROST 0.005% 2.5 ML OPHT DROPS RTEYE SCH (20:33)
[2018-02-08] MEDS: PRESERVISION AREDS2 FORMULA EYE VIT 1 EACH PO SCH (20:33)
[2018-02-08] MEDS ORDERED: FAMOTIDINE 20 MG TAB PO PRN (21:00)
[2018-02-09] MEDS: GLUCOSAMINE SULF 500 MG CAP PO SCH ×4 (01:03→20:56)
[2018-02-09 04:29] LABS: PLATELET COUNT 157 10^3/uL (150-400)
[2018-02-09 04:34] LABS: INR 1.13 (0.83-1.16); PROTIME(PATIENT) 14.7 SEC (12.0-15.0)
[2018-02-09] MEDS: ACETAMINOPHEN 325 MG TAB PO SCH ×3 (05:57→19:27)
--- NOTE | 2018-02-09 06:00 | PDCARPN ---
Cardiology Progress Note Chief Complaint: dizziness/ Assessment/Plan: Assessment: s/p TAVR Plan: 02/09/18 05:59 doing well NSR OOB IS check echo Subjective: doing well Reviewed/Discussed With: multidisciplinary team Time Spent with Patient: greater than 25 minutes Time Spent with Patient: Greater than 25 minutes spent on this patients care, greater than 50% of time spent counseling, educating, and coordinating care regarding the above mentioned plan. Objective: Vital Signs (8 Hrs) Temp Pulse Resp BP Pulse Ox 02/09/18 04:00 36.8 C 56 L 16 108/64 98 02/08/18 23:22 36.3 C 85 18 132/62 H 97 Intake/Output (24 Hrs) 02/07/18 02/08/18 02/09/18 05:59 05:59 05:59 Intake Total 1060 Output Total 150 Balance 910 Intake: Oral (ml) 1060 Output: Urine (ml) 150 Urinal 150 Other: Weight 75.75 kg Number of Voids Urinal 1 Result Diagrams: 02/09/18 03:22 02/09/18 03:22 - Physical Exam Constitutional: healthy appearing Eyes: PERRL Ears, Nose, Mouth, Throat: moist mucous membranes Cardiovascular: regular rate and rhythm Peripheral Pulses: 1+: femoral (R), femoral (L) Respiratory: clear to auscultate bilat Gastrointestinal: normoactive bowel sounds Genitourinary: no suprapubic tenderness Skin: no rashes Musculoskeletal: no muscular tenderness Neurologic: AAOx3 ICD10 Worksheet Patient Problems: Problems Problem Status Onset Vertigo Acute
[2018-02-09] MEDS: ATORVASTATIN CALCIUM 40 MG TAB PO SCH (08:26)
[2018-02-09] MEDS: ASPIRIN 81 MG CHEWABLE TAB PO SCH ×2 (08:26→09:20)
[2018-02-09] MEDS: OMEGA-3 FATTY ACIDS 1,000 MG CAP PO SCH ×2 (08:26→20:56)
[2018-02-09] MEDS: PRESERVISION AREDS2 FORMULA EYE VIT 1 EACH PO SCH ×2 (08:26→20:56)
[2018-02-09] MEDS: LATANOPROST 0.005% 2.5 ML OPHT DROPS RTEYE SCH ×2 (09:05→22:41)
--- NOTE | 2018-02-09 09:14 | ASMTCMCOM ---
CM Note CM Note Notes: 02/09/2018 Case Management Note Pt admitted for TAVR procedure. TAVR pts are prescreened for discharge needs. Pt has strong famly support. There are no therapy evals ordered at this time. Case Management d/c poc: anticipating home with family support and cardiac rehab Case Management available if needs change. Date Signed: 02/09/2018 09:13 AM Electronically Signed By:Roya Angel RN
--- NOTE | 2018-02-09 10:22 | CPEKG ---
Test Reason : OPEN Blood Pressure : / mmHG Vent. Rate : 047 BPM Atrial Rate : 047 BPM P-R Int : 232 ms QRS Dur : 127 ms QT Int : 556 ms P-R-T Axes : 087 092 -89 degrees QTc Int : 492 ms Sinus bradycardia Prolonged ME interval Nonspecific intraventricular conduction delay Inferior infarct, age indeterminate Borderline ST elevation, anterior leads Lateral leads are also involved Previous ECG with LAFP and RBBB patterns Confirmed by Francisco Lima ([id number]) on 02/09/2018 10:21:54 AM Referred By: Confirmed By:Francisco Lima
[2018-02-09] MEDS ORDERED: FAMOTIDINE 20 MG TAB PO PRN (14:30)
--- NOTE | 2018-02-09 15:56 | ECHO ---
[email or web address] [address] [address] Main: [phone] Fax: Transthoracic Echocardiogram Name: SHIVANI BARRERA MR#: [id number] Study Date: 02/09/2018 Study Time: 09:29 AM Date of : 1930 Age: 87 year(s) Height: 170.2 cm (67 in.) Weight: 75.75 kg (167 lb.) BSA: 1.87 m2 Gender: Male Examination: Echo Indication: Post TAVR Image Quality: Contrast: Requested by: Edison Avalos BP: 152 mmHg/60 mmHg Heart Rate: Rhythm: Indication: Post TAVR Procedure Staff Stave Cutting Supervisor: Wayne Lobo RDCS Reading Physician: Francisco Lima MD Requesting Provider: Conclusions: Normal size left ventricle. Mild to moderate LVH. Normal global systolic LV function. EF is 79 %. No regional wall motion abnormality. Normal diastolic LV function. There is no mitral valve regurgitation. Trivial to mild mitral regurgitation. There is a Core valve in the aortic valve position. The mean Pg is 11 mmHg with a AV Vmax of 2.2 m/s. There is mild aortic insufficiency.. The tricuspid valve is normal in appearance and function. Measurements: Chambers Valvular Assessment AV/MV Valvular Assessment TV/PV Normal Normal Normal Name Value Range Name Value Range Name Value Range Ao Soledad (MM): 2.6 cm (2.2 cm-3.7 AV Vmax: 2.28 m/s (1 m/s-1.7 TR Vmax: 2.69 mm/s ( - ) cm) m/s) TR PGmax: 29 mmHg ( - ) IVSd (2D): 1.3 cm (0.6 cm-1.1 AV maxP mmHg ( - ) syst. PAP: 34 mmHg ( - ) cm) AV meanP mmHg ( - ) PV Vmax: 0.95 m/s (0.6 m/s-0.9 LVDd (2D): 4.2 cm (4.2 cm-5.9 LVOT Vmax: 1.29 m/s (0.7 m/s-1.1 m/s) cm) m/s) PV PGmax: 4 mmHg ( - ) LVDs (2D): 2.2 cm (2.1 cm-4 FINN (Vmax): 2.6 cm2 ( - ) cm) FINN (VTI): 2.5 cm ( - ) LVPWd (2D): 1.4 cm (0.6 cm-1 AR (PHT): 658 ms ( - ) cm) MV E Vmax: 0.80 m/s ( - ) LVOTd 2.4 cm 2.4 cm mm MV A Vmax: 0.33 m/s ( - ) LVEF (2D): 79 (>=54 %) MV E/A: 2.42 ( - ) Continued Measurements: Patient: SHIVANI BARRERA Study Date: 02/09/2018 Page 1 of 2 09:29 AM Chambers Valvular Assessment AV/MV Valvular Assessment TV/PV Name Value Name Value Name Value LADs Lon.1 cm MV E' Septal: 0.07 m/s CVP (est.): 5 mmHg LA Area: 17.9 cm2 MV E/E' Septal: 12.00 LA Volume: 47 ml MV E/E' Lateral: 8.10 LA Volume Index: 25.1 ml/m2 AR Vmax: 3.18 cm/s Findings: Left Ventricle: Normal size left ventricle. Mild to moderate LVH. Normal global systolic LV function. EF is 79 %. No regional wall motion abnormality. Normal diastolic LV function. Right Ventricle: Normal size right ventricle. Normal RV function. Left Atrium: The left atrium is normal in size. Right Atrium: The right atrium is normal in size. Mitral Valve: There is no mitral valve regurgitation.No mitral stenosis is present. Trivial to mild mitral regurgitation. Aortic Valve: There is a Core valve in the aortic valve position. The mean Pg is 11 mmHg with a AV Vmax of 2.2 m/s. There is mild aortic insufficiency.. Tricuspid Valve: The tricuspid valve is normal in appearance and function. Pulmonic Valve: The pulmonic valve is normal in appearance and function. Aorta: The aorta is normal. Pericardium: No pericardial effusion. (No Signature Object) Patient: SHIVANI BARRERA Study Date: 02/09/2018 Page 2 of 2 09:29 AM [id number]
[2018-02-09] MEDS: IBUPROFEN 800 MG TAB PO PRN (17:12)
[2018-02-10] MEDS: IBUPROFEN 800 MG TAB PO PRN (00:22)
[2018-02-10] MEDS: ACETAMINOPHEN 325 MG TAB PO SCH ×5 (01:28→22:26)
[2018-02-10 04:41] LABS: PLATELET COUNT 137 10^3/uL (150-400)
[2018-02-10 04:48] LABS: INR 1.03 (0.83-1.16); PROTIME(PATIENT) 13.7 SEC (12.0-15.0)
--- NOTE | 2018-02-10 06:52 | PDCARPN ---
Cardiology Progress Note Chief Complaint: s/p TAVR Assessment/Plan: Assessment: s/p TAVR Plan: 02/09/18 05:59 doing well NSR OOB IS check echo 02/10/18 06:51 pt has has intermittent 3rd degree HB/2nd degree Mobitz II overnight plan for PPM today NPO echo- NL EF, NL TAVR, mild PV leak Subjective: mild dizziness yesterday Reviewed/Discussed With: multidisciplinary team Time Spent with Patient: greater than 25 minutes Time Spent with Patient: Greater than 25 minutes spent on this patients care, greater than 50% of time spent counseling, educating, and coordinating care regarding the above mentioned plan. Objective: Vital Signs (8 Hrs) Temp Pulse Resp BP Pulse Ox 02/10/18 03:30 36.8 C 56 L 16 110/62 97 02/10/18 00:40 57 L 131/57 H 02/09/18 23:13 36.6 C 57 L 16 116/54 L 96 Intake/Output (24 Hrs) 02/09/18 02/10/18 02/11/18 05:59 05:59 05:59 Intake Total 1060 750 Output Total 150 Balance 910 750 Intake: Oral (ml) 1060 750 Output: Urine (ml) 150 Urinal 150 Other: Weight 75.75 kg Number of Voids Toilet 1 Urinal 1 Number of Stools Toilet 2 Result Diagrams: 02/10/18 03:12 02/09/18 03:22 - Physical Exam Constitutional: healthy appearing Eyes: PERRL Ears, Nose, Mouth, Throat: moist mucous membranes Cardiovascular: regular rate and rhythm Peripheral Pulses: 1+: femoral (R), femoral (L) Respiratory: clear to auscultate bilat Gastrointestinal: normoactive bowel sounds Genitourinary: no suprapubic tenderness Skin: no rashes Musculoskeletal: no muscular tenderness Neurologic: AAOx3 Psychiatric: cooperative ICD10 Worksheet Patient Problems: Problems Problem Status Onset Vertigo Acute
[2018-02-10] MEDS ORDERED: BACITRACIN IRRIGATION/NS 50,000 UNITS/1,000 ML BTL IRR ONE ×2 (06:54→09:24)
[2018-02-10] MEDS ORDERED: NS 1,000 ML IV ONE (09:24)
[2018-02-10] MEDS ORDERED: VANCOMYCIN HCL/NORMAL SALINE 250 ML IV ONE (10:00)
[2018-02-10] MEDS ORDERED: IOPAMIDOL (ISOVUE-300) 50 ML VIAL ONE (10:11)
[2018-02-10] MEDS ORDERED: LIDOCAINE 1% 300 MG/30 ML SDV ONE (10:11)
[2018-02-10] MEDS ORDERED: MIDAZOLAM 2 MG/2 ML VIAL ONE ×2 (10:12)
[2018-02-10] MEDS ORDERED: fentaNYL 100 MCG/2 ML INJ ONE (10:12)
[2018-02-10] MEDS ORDERED: LIDO/EPI 1% **for epidural** 30 ML SDV ONE (10:12)
[2018-02-10] MEDS ORDERED: BUPIVACAINE 0.5% 30 ML SDV ONE (10:12)
[2018-02-10] MEDS: ASPIRIN 81 MG CHEWABLE TAB PO SCH (10:20)
[2018-02-10] MEDS: GLUCOSAMINE SULF 500 MG CAP PO SCH ×3 (10:21→20:08)
[2018-02-10] MEDS: ATORVASTATIN CALCIUM 40 MG TAB PO SCH ×2 (10:21→17:01)
[2018-02-10] MEDS: OMEGA-3 FATTY ACIDS 1,000 MG CAP PO SCH ×2 (10:21→20:08)
[2018-02-10] MEDS: PRESERVISION AREDS2 FORMULA EYE VIT 1 EACH PO SCH ×2 (10:21→20:10)
[2018-02-10] MEDS: LATANOPROST 0.005% 2.5 ML OPHT DROPS RTEYE SCH (11:20)
--- NOTE | 2018-02-10 12:27 | PDGENHP ---
History & Physical Chief Complaint: Symptomatic complete heart block post TAVR History of Present Illness: Asked to place pacemaker in this patient by Dr. Edison Avalos Relevant Physical Exam: S1-S2 regular rate and rhythm, CTA, alert an oriented x3 Cardiorespiratory Assessment: I have reviewed his telemetry tracings that show intermittent complete heart block and second-degree heart block. He has underlying left bundle-branch block. Permanent pacing is indicated. Risks of transvenous pacemaker implantation including but not limited to , myocardial infarction, stroke, cardiac tamponade which may require emergent cardiac surgery, infection, bleeding, pneumothorax, lead dislodgement and risks of sedation/anesthesia were discussed. Long-term issues like pacemaker pocket erosion, lead failure, venous stenosis, superior vena cava syndrome, need for lead extraction were discussed. Need for close long-term follow-up in our device clinic was emphasized. Need for generator change was discussed.
--- NOTE | 2018-02-10 12:28 | PDPROPOC ---
Sedation Plan of Care Sedation Plan of Care: vital signs stable, mental status noted, patient educated of risks, benefits, alternatives, patient can tolerate sedation ASA Classification: ASA 2 Planned drugs: midazolam Mallampati Score: Class 2 Mallampati Reference Image: Patient passed 3-3-2 rule?: Yes
--- NOTE | 2018-02-10 17:12 | EPPROC ---
Electrophysiology Procedure Note: PROCEDURE PERFORMED: 1. Implantation of an A/V Pacemaker 2. Subclavian vein angiography 3. Fluoroscopy INDICATION: Post TAVR complete AV block PROCEDURE NOTE: Patient presented to the cardiac catheterization laboratory in a fasting, post absorptive state . EP RN administered sedation. The left infraclavicular area was prepped and draped in the usual sterile fashion. Lidocaine plus bupivacaine was used for local anesthesia. Left subclavian venography was performed by injection of iodinated contrast into the left antecubital vein. This was done to assure patency of the vein and also to assess for any anatomical aberrations. Using a combination of blunt and sharp dissection and electrocautery, the dissection was carried down to the prepectoral fascia. A pocket was made in this anatomical plane. All bleeding was controlled with electrocautery. The pocket was packed with gauze soaked in antibiotic solution. Fluoroscopy was utilized during the entire procedure for venous access and placement of the leads. Using a direct stick technique the left extrathoracic axillary vein was accessed with 2 sticks using the modified Seldinger technique. Placement of the guidewires into the venous system was confirmed by low-pressure blood return and also by visualizing the guidewires advancing into the inferior vena cava. A purse string suture was applied around the guidewires. Two #7 [place] sheaths were advanced under fluoroscopic guidance over the guidewire. An active fixation ventricular lead was advanced into the right ventricular apex and screwed in place. An active fixation atrial lead was advanced into the right atrial appendage and screwed in place. The peel away sheaths were removed. Pacing thresholds, sensing parameters and lead impedances were measured. There was no diaphragmatic stimulation at maximum output. The leads were sutured to the prepectoral fascia with 3 nonabsorbable sutures each. The pocket was again inspected for any bleeding. The leads were attached to the pacemaker securely. The pacemaker was inserted into the pocket and secured in place with a nonabsorbable suture. Fluoroscopy was performed in [place] and [place] planes to verify right-sided placement of the leads. Also fluoroscopy of the pacemaker pocket was performed. The pacemaker pocket was closed in 3 layers with absorbable monocryl sutures and jeny. Appropriate dressing was applied. The patient left the cardiac catheterization laboratory in stable condition. Serial Numbers: 1. Device: Medtronic Zenaida MRI SN [id number] 2. Atrial Lead: Medtronic 4076-45 [id number] 3. Ventricular Lead: Medtronic 4076-52 [id number] Stimulation Thresholds & Impedance Measurements: 1. Atrial Lead P 3 mV 588 ohm 0.7 V 0.4 V 0.5 ms 2. Ventricular Lead R 9.2 mV 669 ohm 0.5 V 0.5 ms George Pacing Parameters 1. Pacing mode: DDDR AV delay 180 ms 2. Lower rate: 60ppm 3. Upper tracking rate: 120 ppm 4. Upper sensor rate: 120 ppm Patient Problems: Problems Problem Status Onset Complete heart block Acute Vertigo Acute
[2018-02-10] MEDS ORDERED: LATANOPROST 0.005% 2.5 ML OPHT DROPS RTEYE SCH (21:00)
[2018-02-11 04:00] LABS: PLATELET COUNT 107 10^3/uL (150-400)
[2018-02-11 04:09] LABS: INR 1.11 (0.83-1.16); PROTIME(PATIENT) 14.5 SEC (12.0-15.0)
[2018-02-11] MEDS: ACETAMINOPHEN 325 MG TAB PO SCH ×2 (06:16→11:52)
--- NOTE | 2018-02-11 08:44 | SOAPPROG ---
SOAP Progress Note Assessment/Plan: Assessment: POD#3 TAVR #34 Medtronic Evolut POD#1 placement Medtronic Zenaida dual chamber permanent pacemaker. DDDR mode. Lower rate 60. Sx critical /mod AI - Amenable to TAVR. No sig PVL. Preserved LV systolic fx. Antithrombotic prophylaxis with ASA alone. Chronic bifascicular block - Postop course compl by [facility] req placement of PPM yest. Pacer interrogation pending. Plan: Ok for discharge home after intact pacer fx verified. Instructions re diet, meds, activity, wound care, and follow-up as per TAVR coordinator Jeimy. 02/11/18 08:39 Subjective: Feels well. Yet to walk much but feels peppy. Excellent appetite. Min incisional discomfort. Would like to go home this afternoon. Objective: Vital Signs Temp Pulse Resp BP Pulse Ox 36.5 C 70 18 142/74 H 96 02/11/18 07:42 02/11/18 07:42 02/11/18 07:42 02/11/18 07:42 02/11/18 07:42 Laboratory Results 02/11/18 03:15 02/11/18 03:15 02/10/18 02/11/18 02/12/18 05:59 05:59 05:59 Intake Total 750 540 Output Total 200 Balance 750 340 PT 14.5 SEC (12.0-15.0) 02/11/18 03:15 INR 1.11 (0.83-1.16) 02/11/18 03:15 CXR no PTX, no pulm vasc congestion, no effusions, pacer leads in good position. 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 Robust SBPs. No suppl O2 req. Labs as expected. Physical Exam - Physical Exam General Appearance: alert, no apparent distress Respiratory: lungs clear (grossly) Cardiac/Chest: regular rate, rhythm, other (Left PPM dressing CDI. Perimeter soft, flat) Abdomen: non-tender, soft Skin: warm/dry Extremities: other (No visible edema. Bilateral groins soft. No palp hematoma.) ICD10 Worksheet Patient Problems: Problems Problem Status Onset Complete heart block Acute Vertigo Acute
[2018-02-11] MEDS: PRESERVISION AREDS2 FORMULA EYE VIT 1 EACH PO SCH (09:46)
[2018-02-11] MEDS: ATORVASTATIN CALCIUM 40 MG TAB PO SCH (09:46)
[2018-02-11] MEDS: OMEGA-3 FATTY ACIDS 1,000 MG CAP PO SCH (09:46)
[2018-02-11] MEDS: ASPIRIN 81 MG CHEWABLE TAB PO SCH (09:46)
[2018-02-11] MEDS: GLUCOSAMINE SULF 500 MG CAP PO SCH (09:46)
[2018-02-11 11:13] VITALS: BP 122/58
--- NOTE | 2018-02-11 11:48 | PDCARPN ---
Cardiology Progress Note Chief Complaint: junctional rhythm and bradycardia s/p TAVR Assessment/Plan: Assessment: 87M PMH with minimal med hx other than AMD who was found to have critical in setting of preop evaluation for shoulder replacement. He is POD#3 TAVR #34 Medtronic Evolut. Post-procedurally, he was developing junctional rhythm and bradycardia. #. critical : s/p TAVR stable for discharge groin sutures previously removed #. junctional rhythm: s/p PPM with Medtronic [place] dual chamber permanent pacemaker. DDDR mode. Lower rate 60. arm precautions reviewed today pt will be followed up in pacer clinic #. mod AR: will have routine echocardiographic followup Plan: - Stable for outpatient followup. 02/11/18 11:42 Subjective: No groin/L chest wall or arm pain. Reviewed/Discussed With: multidisciplinary team (Edu from [employer] and Vesta Courtney, SETH) Objective: Vital Signs (8 Hrs) Temp Pulse Resp BP Pulse Ox 02/11/18 11:12 97.7 F 71 18 122/58 H 95 02/11/18 07:42 97.7 F 70 18 142/74 H 96 Intake/Output (24 Hrs) 02/10/18 02/11/18 02/12/18 05:59 05:59 05:59 Intake Total 750 540 Output Total 200 Balance 750 340 Intake: Oral (ml) 750 390 IV Intake (ml) 150 Output: Urine (ml) 200 Toilet 200 Other: Number of Voids Toilet 1 3 Number of Stools Toilet 2 1 Result Diagrams: 02/11/18 03:15 02/11/18 03:15 EKG: A-sensed, V-paced Telemetry: reviewed - Physical Exam Constitutional: no apparent distress Eyes: anicteric sclera Cardiovascular: regular rate and rhythm Respiratory: clear to auscultate bilat, no crackles Gastrointestinal: normoactive bowel sounds Neurologic: AAOx3 Psychiatric: cooperative, interactive ICD10 Worksheet Patient Problems: Problems Problem Status Onset Complete heart block Acute Vertigo Acute
--- NOTE | 2018-02-11 11:53 | CPEKG ---
Test Reason : OPEN Blood Pressure : / mmHG Vent. Rate : 071 BPM Atrial Rate : 071 BPM P-R Int : 249 ms QRS Dur : 161 ms QT Int : 469 ms P-R-T Axes : 026 -66 111 degrees QTc Int : 510 ms Sinus rhythm Prolonged MT interval Left bundle branch block In comparison to prior ECGs, the LBBB pattern is new (IVCD in prior, RBBB in prior to that) Confirmed by Francisco Lima ([id number]) on 02/11/2018 11:53:07 AM Referred By: Confirmed By:Francisco Lima
--- NOTE | 2018-02-11 12:00 | CPEKG ---
Test Reason : OPEN Blood Pressure : / mmHG Vent. Rate : 064 BPM Atrial Rate : 000 BPM P-R Int : 260 ms QRS Dur : 156 ms QT Int : 496 ms P-R-T Axes : 257 -10 208 degrees QTc Int : 512 ms Junctional rhythm Left bundle branch block Junctional rhythm is new in comparison to prior Confirmed by Francisco Lima ([id number]) on 02/11/2018 11:59:10 AM Referred By: Confirmed By:Francisco Lima
--- NOTE | 2018-02-11 12:15 | CPEKG ---
Test Reason : OPEN Blood Pressure : / mmHG Vent. Rate : 068 BPM Atrial Rate : 068 BPM P-R Int : 115 ms QRS Dur : 163 ms QT Int : 435 ms P-R-T Axes : 138 -35 172 degrees QTc Int : 463 ms Junctional rhythm Left bundle branch block Confirmed by Francisco Lima ([id number]) on 02/11/2018 12:15:48 PM Referred By: Confirmed By:Francisco Lima
--- NOTE | 2018-02-11 12:19 | CPEKG ---
Test Reason : OPEN Blood Pressure : / mmHG Vent. Rate : 061 BPM Atrial Rate : 061 BPM P-R Int : 210 ms QRS Dur : 161 ms QT Int : 508 ms P-R-T Axes : 021 -74 095 degrees QTc Int : 512 ms A-V dual-paced rhythm with some inhibition AV pacing has replaced junctional on prior Confirmed by Francisco Lima ([id number]) on 02/11/2018 12:18:45 PM Referred By: Confirmed By:Francisco Lima
--- NOTE | 2018-02-11 15:37 | PDDCSUM ---
Discharge Summary Discharge Summary: DATE OF ADMISSION: 02/08/18 DATE OF DISCHARGE: 02/11/18 DISPOSITION: Home, self-care PRINCIPAL ADMISSION DIAGNOSIS: Critical aortic valve stenosis PRINCIPAL DISCHARGE DIAGNOSES: 1. Status post transcatheter aortic valve replacement with a bioprosthesis 2. Postop complete heart block requiring placement of a permanent dual chamber pacemaker 3. Acute expected blood loss anemia HISTORY OF PRESENT ILLNESS: 87 yo male with a longstanding murmur and worsening exertional dyspnea with lightheadedness discovered to have critical with moderate AI. No assoc LVE, LVSD, PHTN, obstructive CAD or documented arrhythmia. Admitted for an elective TAVR. 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 Right groin closure with a double Perclose. Left groin closure with an 8 fr Angioseal. 02/08 (Janie): Transthoracic echocardiogram 02/10 (Too): Placement of a Medtronic [place] dual chamber permanent pacemaker. DDDR mode. Lower rate 60. ABBREVIATED HOSPITAL COURSE BY ACTIVE PROBLEM LIST: 1. Sx critical /mod AI - Amenable to TAVR. Minimal PVL. Preserved LV systolic fx. Antithrombotic prophylaxis with ASA alone. 2. Postop high degree heart block - Chronic underlying bifascicular block with early postop 2nd degree AVB and intermittent CHB req placement of a PPM. 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 3. Acute expected blood loss anemia - Stable. No transfusions required. DISCHARGE CLINICAL INFORMATION: Bilat groins CDI. Perimeter soft, min palp hematoma. Left pacer pocket dressing CDI. Surrounding area soft and flat. HR 60s-70s, -EDUCATION ADMINISTRATIVE ASSISTANT. SBP 120s. SpO2 95% RA. WBC 8.5, Hgb 11.1, HCT 31.8, Plt 107, Na 139, K 4.1, Cr 0.9 DISCHARGE MEDICATIONS: As on admission with the following NEW medications: 1. Tylenol 500-650 mg q6h prn incisional discomfort. Max daily dose 3,000 mg. FOLLOW UP APPOINTMENTS: 1. Cardiology: with Dr Avalos at [facility] on 02/16 at 3:15 pm. 2. Pacemaker clinic: at [facility] on 02/16 at 3:30 pm. FOLLOW UP TESTING: Transthoracic echocardiogram at [facility] on 03/12.
--- NOTE | 2018-02-12 09:11 | CPEKG ---
Test Reason : OPEN Blood Pressure : / mmHG Vent. Rate : 069 BPM Atrial Rate : 070 BPM P-R Int : 203 ms QRS Dur : 168 ms QT Int : 476 ms P-R-T Axes : 020 -73 096 degrees QTc Int : 510 ms Atrial-sensed ventricular-paced rhythm Confirmed by Francisco Lima ([id number]) on 02/12/2018 9:11:07 AM Referred By: Confirmed By:Francisco Lima
== END 2018-02-11 15:46 | disposition home or self-care (01) | DRG 267 ==
LOC: FCATH 06:12 → OBSVTOIN 10:10 → F2W 10:10
PROVIDERS: ADMIT Internal Medicine Cardiovascular Disease; ATTEND Internal Medicine Cardiovascular Disease
PROC: 02RF38Z Replacement of Aortic Valve with Zooplastic Tissue, Percutaneous Approach (ICD-10-PCS; principal; 2018-02-08)
PROC: 02H63JZ Insertion of Pacemaker Lead into Right Atrium, Percutaneous Approach (ICD-10-PCS; 2018-02-10)
PROC: 02HK3JZ Insertion of Pacemaker Lead into Right Ventricle, Percutaneous Approach (ICD-10-PCS; 2018-02-10)
PROC: 0JH606Z Insertion of Pacemaker, Dual Chamber into Chest Subcutaneous Tissue and Fascia, Open Approach (ICD-10-PCS; 2018-02-10)
DX: I35.0 Nonrheumatic aortic (valve) stenosis (principal); Z00.6 Encounter for examination for normal comparison and control in clinical research program; I44.2 Atrioventricular block, complete; D62 Acute posthemorrhagic anemia; E78.5 Hyperlipidemia, unspecified; I25.10 Atherosclerotic heart disease of native coronary artery without angina pectoris; H35.30 Unspecified macular degeneration; Z23 Encounter for immunization
CPT/HCPCS: C1760; C1769; C1785; C1898; G0008; J1100; J2001; J2250; J2370; J2405; J2704; J2720; J3010; J3370; Q9967

== ENCOUNTER → 2018-03-10 | Outpatient (CLI) | payer OTHER, BC | LOC: FIMAGING 15:40 | PROVIDERS: ATTEND Internal Medicine Cardiovascular Disease | DX: M79.605 Pain in left leg (principal); T14.8XXA Other injury of unspecified body region, initial encounter; S30.1XXA Contusion of abdominal wall, initial encounter ==

== ENCOUNTER → 2018-03-10 | Outpatient (CLI) | payer OTHER, BC | LOC: BHFA 14:00 | PROVIDERS: ATTEND Internal Medicine Cardiovascular Disease | DX: I35.9 Nonrheumatic aortic valve disorder, unspecified (principal) ==

== ENCOUNTER 2018-04-15 09:45 | Inpatient (IN) | payer OTHER, BC ==
--- NOTE | 2018-04-15 09:49 | EDPHY ---
H & P Time Seen by Provider: 04/15/18 09:47 HPI/ROS: CHIEF COMPLAINT: Acute left groin pain HISTORY OF PRESENT ILLNESS: The patient presents the ED with complaints of acute left groin plane that began earlier today. The patient has been struggling with a left groin hematoma since a TVAR procedure in January. He has had outpatient ultrasounds which demonstrate hematoma without the presence of pseudoaneurysm. Today the patient developed acute pain in his left lower quadrant and groin. He attempted to have a bowel movement without significant improvement of his symptoms. Given the severity of his pain he presents to the emergency department for further evaluation. The patient denies any hematuria or dysuria. The patient denies any history of fall or trauma. REVIEW OF SYSTEMS: A comprehensive 10 point review of systems is otherwise negative aside from elements mentioned in the history of present illness. Source: Patient Exam Limitations: No limitations - Medical/Surgical History Hx Asthma: No Hx Chronic Respiratory Disease: No Hx Diabetes: No Hx Cardiac Disease: Yes Hx Renal Disease: No Hx Cirrhosis: No Hx Alcoholism: No Hx HIV/AIDS: No Hx Splenectomy or Spleen Trauma: No Other PMH: TVAR, shoulder degeneration - Social History Smoking Status: Never smoked - Physical Exam Exam: General Appearance: Alert, no distress Eyes: Pupils equal and round no pallor or injection ENT, Mouth: Mucous membranes moist Respiratory: There are no retractions, lungs are clear to auscultation Cardiovascular: Regular rate and rhythm Gastrointestinal: Abdomen is soft and nontender, no masses, bowel sounds normal Neurological: A&O, normal motor function, normal sensory exam, normal cranial nerves Skin: Warm and dry, no rashes Musculoskeletal: Neck is supple nontender Extremities: symmetrical, full range of motion Constitutional: Initial Vital Signs Temperature (C) 36.4 C 04/15/18 09:52 Heart Rate 75 04/15/18 09:52 Respiratory Rate 16 04/15/18 09:52 Blood Pressure 141/73 H 04/15/18 09:52 O2 Sat (%) 100 04/15/18 09:52 O2 Delivery Mode Nasal Cannula O2 (L/minute) 2 Allergies/Adverse Reactions: Opioids - Morphine Analogues Allergy (Verified 04/15/18 09:52) Vomiting Penicillins Allergy (Verified 04/15/18 09:52) Unknown Home Medications: Medication Instructions Recorded Atorvastatin Calcium [Lipitor 40 80 mg PO DAILY 09/07/17 mg (*)] C/E/Zn/Cu/OM3/DHA/EPA/LUT/ZEAX 2 each PO BID 09/07/17 [Preservision Areds 2 Softgel] Glucosamine Sulfate [Glucosamine 500 mg PO TID 12/01/17 Sulfate 500 MG (*)] [place]-3 Fatty Acids [Fish Oil 1000 1,000 mg PO BID 12/01/17 mg (*)] Latanoprost 0.005% [Xalatan 0.005% 1 drops RTEYE DAILY 12/02/17 (*)] Ibuprofen [Motrin (*)] 200 mg PO TID PRN 01/27/18 Meclizine HCl [Meclizine HCl 12.5 25 mg PO DAILY PRN 01/27/18 mg (*)] Ranitidine HCl [Zantac] 150 mg PO BID PRN 01/27/18 Acetaminophen [Tylenol 325mg (*)] 650 mg PO Q6HRS tab 02/11/18 Aspirin [Aspirin 81mg (*)] 81 mg PO DAILY tab.chew 02/11/18 Medical Decision Making - Diagnostics Imaging Results: Imaging Impressions Abdomen CT 04/15/18 10:56 Impression: 1. Mild left-sided hydronephrosis with dilatation of the left renal pelvis and ureter down to the UVJ where there is a 3 x 2.5 mm left UVJ calculus. 2. Persistent lobulated complex collection left inguinal region presumably secondary to large hematoma subsequent to previous TAVR procedure Findings discussed with Lavon Sarmiento M.D. at 12:19 hour, 04/15/2018. ED Course/Re-evaluation: I reviewed the patient's past medical records including his October records from his TAVR procedure and 2 outpatient ultrasounds which demonstrated a persistent clot in the left groin area without evidence of an obvious pseudoaneurysm. Given the patient's acute pain he was taken for CT scan of the abdomen pelvis which demonstrates a distal left ureteral stone. The patient was treated with a single dose of Toradol and Flomax. The patient received IV narcotic medications for severe abdominal pain. The patient does have a history of chronic dizziness and now is having an exacerbation of that in the emergency department. The patient will be admitted to the hospital. I did discuss this with Dr. Gandara. Who was post to perform surgery on the patient for the hematoma.. He would like to have the patient admitted to [facility]. Consultation was made with the hospitalist service at 2:00 p.m.. Differential Diagnosis: Differential diagnosis considered includes nephrolithiasis, ureterolithiasis, infected abscess, arterial insufficiency, pyelonephritis, renal failure - Data Points Laboratory Results: Laboratory Results 04/15/18 10:30 04/15/18 10:30 04/15/18 04/15/18 04/15/18 10:35 10:30 10:30 WBC 9.70 10^3/uL H 10^3/uL (3.80-9.50) RBC 4.03 10^6/uL L 10^6/uL (4.40-6.38) Hgb 13.7 g/dL g/dL (13.7-17.5) POC Hgb 12.6 gm/dL L gm/dL (13.7-17.5) Hct 39.1 % L % (40.0-51.0) POC Hct 37 % L % (40-51) MCV 97.0 fL fL (81.5-99.8) MCH 34.0 pg pg (27.9-34.1) MCHC 35.0 g/dL g/dL (32.4-36.7) RDW 12.2 % % (11.5-15.2) Plt Count 141 10^3/uL L 10^3/uL (150-400) MPV 8.9 fL fL (8.7-11.7) Neut % (Auto) 46.6 % % (39.3-74.2) Lymph % (Auto) 40.3 % % (15.0-45.0) [place] % (Auto) 11.9 % % (4.5-13.0) Eos % (Auto) 0.6 % % (0.6-7.6) Baso % (Auto) 0.3 % % (0.3-1.7) Nucleat RBC Rel Count 0.0 % % (0.0-0.2) Absolute Neuts (auto) 4.52 10^3/uL 10^3/uL (1.70-6.50) Absolute Lymphs (auto) 3.91 10^3/uL H 10^3/uL (1.00-3.00) Absolute Monos (auto) 1.15 10^3/uL H 10^3/uL (0.30-0.80) Absolute Eos (auto) 0.06 10^3/uL 10^3/uL (0.03-0.40) Absolute Basos (auto) 0.03 10^3/uL 10^3/uL (0.02-0.10) Absolute Nucleated RBC 0.00 10^3/uL 10^3/uL (0-0.01) Immature Gran % 0.3 % % (0.0-1.1) Immature Gran # 0.03 10^3/uL 10^3/uL (0.00-0.10) POC Sodium 143 mEq/L mEq/L (135-145) Sodium 140 mEq/L mEq/L (135-145) POC Potassium 4.0 mEq/L mEq/L (3.3-5.0) Potassium 4.4 mEq/L mEq/L (3.5-5.2) POC Chloride 109 mEq/L mEq/L (97-110) Chloride 112 mEq/L H mEq/L (97-110) Carbon Dioxide 17 mEq/l L mEq/l (22-31) Anion Gap 11 mEq/L mEq/L (6-14) POC BUN 18 mg/dL mg/dL (7-23) BUN 20 mg/dL mg/dL (7-23) Creatinine 1.2 mg/dL mg/dL (0.7-1.3) POC Creatinine 1.3 mg/dL mg/dL (0.7-1.3) Estimated GFR 57 Glucose 94 mg/dL mg/dL (70-100) POC Glucose 109 mg/dL H mg/dL (70-100) Calcium 9.5 mg/dL mg/dL (8.5-10.4) Medications Given: Discontinued Medications Fentanyl (Sublimaze) 50 mcg IVP EDNOW ONE Stop: 04/15/18 10:37 Last Admin: 04/15/18 10:38 Dose: 50 mcg Fentanyl (Sublimaze) 50 mcg IVP EDNOW ONE Stop: 04/15/18 11:05 Last Admin: 04/15/18 11:09 Dose: 50 mcg Sodium Chloride (Ns) 1,000 mls @ 0 mls/hr IV EDNOW ONE; Wide Open PRN Reason: Protocol Stop: 04/15/18 12:50 Last Admin: 04/15/18 12:59 Dose: 1,000 mls Ketorolac Tromethamine (Toradol) 15 mg IVP EDNOW ONE Stop: 04/15/18 12:18 Last Admin: 04/15/18 12:30 Dose: 15 mg Ondansetron HCl (Zofran) 4 mg IVP EDNOW ONE Stop: 04/15/18 11:05 Last Admin: 04/15/18 11:08 Dose: 4 mg Tamsulosin HCl (Flomax) 0.4 mg PO EDNOW ONE Stop: 04/15/18 12:17 Last Admin: 04/15/18 12:30 Dose: 0.4 mg Point of Care Test Results: Chemistry 04/15/18 10:35 POC Sodium 143 mEq/L mEq/L (135-145) POC Potassium 4.0 mEq/L mEq/L (3.3-5.0) POC Chloride 109 mEq/L mEq/L (97-110) POC BUN 18 mg/dL mg/dL (7-23) POC Creatinine 1.3 mg/dL mg/dL (0.7-1.3) POC Glucose 109 mg/dL H mg/dL (70-100) ISTAT H&H 04/15/18 10:35 POC Hgb 12.6 gm/dL L gm/dL (13.7-17.5) POC Hct 37 % L % (40-51) Departure - Departure Disposition: [facility] Inpatient Acute Clinical Impression: Ureterolithiasis, Groin hematoma, Vomiting, Vertigo Condition: Fair Referrals: Patient,NotPresent [Unknown] - As per Instructions
[2018-04-15] MEDS ORDERED: fentaNYL 100 MCG/2 ML INJ ONE (10:35)
[2018-04-15] MEDS ORDERED: fentaNYL 100 MCG/2 ML INJ IVP ONE ×2 (10:36→11:04)
[2018-04-15 10:41] LABS: PLATELET COUNT 141 10^3/uL (150-400)
[2018-04-15] MEDS ORDERED: IOPAMIDOL (ISOVUE-300) 100 ML BTL ONE (11:03)
[2018-04-15] MEDS ORDERED: ONDANSETRON 4 MG/2 ML VIAL IVP ONE (11:04)
[2018-04-15] MEDS ORDERED: TAMSULOSIN HCL 0.4 MG CAP PO ONE (12:16)
[2018-04-15] MEDS ORDERED: KETOROLAC 15 MG/1 ML SDV IVP ONE (12:17)
[2018-04-15] MEDS ORDERED: NS 1,000 ML IV ONE (12:49)
[2018-04-15] MEDS ORDERED: ONDANSETRON DISINTEGRATING 4 MG TAB PO PRN (14:40)
[2018-04-15] MEDS ORDERED: ONDANSETRON 4 MG/2 ML VIAL IVP PRN (14:40)
[2018-04-15] MEDS ORDERED: ACETAMINOPHEN 325 MG TAB PO PRN (14:40)
[2018-04-15] MEDS ORDERED: HYDROmorphONE/DILAUDID 1 MG/ML INJ IVP PRN (14:40)
--- NOTE | 2018-04-15 14:55 | ASMTCMCOM ---
CM Note CM Note Notes: See ED report for details regading patient's presentation to the ED. Patient is scheduled for surgery on Thursday, 04/[address] Gandara and has a pre-op appointment today at 2:[address] Gandara' office at [facility]. This CM contacted Lorraine at Dr. Gandara' office to confirm that patient would be admitted to the hospital today and unable to attend his pre-op appointment. Follow up with Lorraine; Dr. Gandara has been informed of patient's admission and will see patient here once he is admitted. Patient's Nicole has been updated at home and will be returning to hospital soon CM available prn Date Signed: 04/15/2018 02:54 PM Electronically Signed By:Lita Renae RN
--- NOTE | 2018-04-15 15:45 | PDGENHP ---
<Rachel Lake - Last Filed: 04/15/18 16:42> History and Physical - History of Present Illness 87 y/o male recently TAVR/pacemaker placed in January of this year presents with acute left groin pain. He has a history of severe aortic stenosis. In early January, he had an angiogram performed where the left femoral artery was utilized. He then completed TAVR and pacemaker placement in the following days. Denies experiencing too much discomfort with the groin site, however had occasional pain. On 03/10/18, he followed up outpatient d/t increase in discomfort and swelling. He had an ultrasound performed which showed a hematoma with no pseudoaneurysm. Today he presents with acute left groin pain. Denies dysuria, hematochezia, melena, chest pains, SOB, nausea. The pt informs me he had melanoma to his left calf and now it has traveled "right underneath" his hematoma. I spoke with Dr. Eddie Gandara who informs me the pt does indeed have mets to left groin and he was to follow up with him on Thursday for a lymphadenectomy but because the pt has come to the ED d/t his acute pain, he will perform lymphadenectomy tomorrow afternoon. Dr. Gandara mentioned the hematoma has actually decreased in size since the angiogram. Abdomen CT: persistent lobulated complex collection left inguinal regional presumably secondary to large hematoma subsequent to TAVR procedure + mild left sided hydro nephrosis with dilatation of the left renal pelvis and ureter down to the UVJ where there is a distal ureteral stone. He is being admitted for further diagnostic work-up and monitoring. Past Medical/Surgical History 1. Macular degeneration with severe visual impairment 2. Vertigo 3. Hyperlipidemia 4. TAVR (02/08/18) 5. Pacemaker (02/10/18) 6. Appendectomy 7. Right shoulder pain Social 1. Retired electrical engineer mep. 2. Denies tobacco or illicit drug use. Denies alcohol. 3. , independent with ADLs Vital Signs 155/66 61 HR 18 Respirations 36.4c 99% 2L NC History Information - Allergies/Home Medication List Allergies/Adverse Reactions: Opioids - Morphine Analogues Allergy (Verified 04/15/18 09:52) Vomiting Penicillins Allergy (Verified 04/15/18 09:52) Unknown Home Medications: Atorvastatin Calcium [Lipitor 40 mg (*)] 80 mg PO DAILY 09/07/17 [Last Taken ] C/E/Zn/Cu/OM3/DHA/EPA/LUT/ZEAX [Preservision Areds 2 Softgel] 2 each PO BID [Last Taken 04/12/18] Glucosamine Sulfate [Glucosamine Sulfate 500 MG (*)] 500 mg PO TID 12/01/17 [ Last Taken 04/12/18] [place]-3 Fatty Acids [Fish Oil 1000 mg (*)] 1,000 mg PO BID 12/01/17 [Last Taken 04/12/18] Latanoprost 0.005% [Xalatan 0.005% (*)] 1 drops RTEYE DAILY 12/02/17 [Last Taken 04/14/18] Ibuprofen [Motrin (*)] 200 mg PO TID PRN 01/27/18 [Last Taken 04/12/18] Meclizine HCl [Meclizine HCl 12.5 mg (*)] 25 mg PO DAILY PRN 01/27/18 [Last Taken 04/12/18] Ranitidine HCl [Zantac] 150 mg PO BID PRN 01/27/18 [Last Taken 04/14/18] I have personally reviewed and updated: family history, medical history, social history, surgical history Past Medical History: See HPI List - Surgical History Additional surgical history: See HPI list - Family History Positive for: non-pertinent - Social History Smoking Status: Never smoked Alcohol Use: None Drug Use: None Review of Systems Review of Systems: ROS: 10pt was reviewed & negative except for what was stated in HPI & below Constitutional: Reports: no symptoms EENMT: Reports: no symptoms Cardiac: Reports: no symptoms Respiratory: Reports: no symptoms Gastrointestinal: Reports: nausea (s/p fentanyl) Genitourinary: Reports: other (Left groin discomfort) Muscolosketal: Reports: neck pain (Positional) Skin: Reports: lumps (Left groin) Neurological: Reports: no symptoms Hematologic/Lymphatic: Reports: no symptoms Immunologic/Allergy: Reports: other (See allergy list) Physical Exam Physical Exam: Lab data and imaging reviewed Ab CT: see HPI list Temp Pulse Resp BP Pulse Ox 36.4 C 61 18 155/66 H 99 04/15/18 09:52 04/15/18 12:47 04/15/18 12:47 12/20/18 12:47 04/15/18 12:47 Constitutional: no apparent distress, appears nourished, not in pain Eyes: PERRL, anicteric sclera, EOMI Ears, Nose, Mouth, Throat: moist mucous membranes, hearing normal, ears appear normal, no oral mucosal ulcers Cardiovascular: regular rate and rhythym, no murmur, rub, or gallop, No edema Peripheral Pulses: 2+: dorsalis-pedis (R) (Radial 2+), dorsalis-pedis (L) ( Radial 2+) Respiratory: no respiratory distress, no rales or rhonchi, clear to auscultation Gastrointestinal: normoactive bowel sounds, soft, non-tender abdomen, no palpable masses Genitourinary: other (Left groin tender lump) Skin: warm, normal color, no rashes or abrasions, no fluctuance, no induration, No mottled Musculoskeletal: full muscle strength, no muscle tenderness, normal joint ROM, no joint effusions Neurologic: AAOx3, sensation intact bilaterally, CN II-XII Intact Psychiatric: interacting appropriately, not anxious, not encephalopathic, thought process linear Lymph, Heme, Immunologic: no cervical LAD, no supraclavicular LAD Lab Data & Imaging Review 04/15/18 10:30 04/15/18 10:30 WBC 9.70 10^3/uL (3.80-9.50) H 04/15/18 10:30 RBC 4.03 10^6/uL (4.40-6.38) L 04/15/18 10:30 Hgb 13.7 g/dL (13.7-17.5) 04/15/18 10:30 POC Hgb 12.6 gm/dL (13.7-17.5) L 04/15/18 10:35 Hct 39.1 % (40.0-51.0) L 04/15/18 10:30 POC Hct 37 % (40-51) L 04/15/18 10:35 MCV 97.0 fL (81.5-99.8) 04/15/18 10:30 MCH 34.0 pg (27.9-34.1) 04/15/18 10:30 MCHC 35.0 g/dL (32.4-36.7) 04/15/18 10:30 RDW 12.2 % (11.5-15.2) 04/15/18 10:30 Plt Count 141 10^3/uL (150-400) L 04/15/18 10:30 MPV 8.9 fL (8.7-11.7) 04/15/18 10:30 Neut % (Auto) 46.6 % (39.3-74.2) 04/15/18 10:30 Lymph % (Auto) 40.3 % (15.0-45.0) 04/15/18 10:30 [place] % (Auto) 11.9 % (4.5-13.0) 04/15/18 10:30 Eos % (Auto) 0.6 % (0.6-7.6) 04/15/18 10:30 Baso % (Auto) 0.3 % (0.3-1.7) 04/15/18 10:30 Nucleat RBC Rel Count 0.0 % (0.0-0.2) 04/15/18 10:30 Absolute Neuts (auto) 4.52 10^3/uL (1.70-6.50) 04/15/18 10:30 Absolute Lymphs (auto) 3.91 10^3/uL (1.00-3.00) H 04/15/18 10:30 Absolute Monos (auto) 1.15 10^3/uL (0.30-0.80) H 04/15/18 10:30 Absolute Eos (auto) 0.06 10^3/uL (0.03-0.40) 04/15/18 10:30 Absolute Basos (auto) 0.03 10^3/uL (0.02-0.10) 04/15/18 10:30 Absolute Nucleated RBC 0.00 10^3/uL (0-0.01) 04/15/18 10:30 Immature Gran % 0.3 % (0.0-1.1) 04/15/18 10:30 Immature Gran # 0.03 10^3/uL (0.00-0.10) 04/15/18 10:30 POC Sodium 143 mEq/L (135-145) 04/15/18 10:35 Sodium 140 mEq/L (135-145) 04/15/18 10:30 POC Potassium 4.0 mEq/L (3.3-5.0) 04/15/18 10:35 Potassium 4.4 mEq/L (3.5-5.2) 04/15/18 10:30 POC Chloride 109 mEq/L (97-110) 04/15/18 10:35 Chloride 112 mEq/L (97-110) H 04/15/18 10:30 Carbon Dioxide 17 mEq/l (22-31) L 04/15/18 10:30 Anion Gap 11 mEq/L (6-14) 04/15/18 10:30 POC BUN 18 mg/dL (7-23) 04/15/18 10:35 BUN 20 mg/dL (7-23) 04/15/18 10:30 Creatinine 1.2 mg/dL (0.7-1.3) 04/15/18 10:30 POC Creatinine 1.3 mg/dL (0.7-1.3) 04/15/18 10:35 Estimated GFR 57 04/15/18 10:30 Glucose 94 mg/dL (70-100) 04/15/18 10:30 POC Glucose 109 mg/dL (70-100) H 04/15/18 10:35 Calcium 9.5 mg/dL (8.5-10.4) 04/15/18 10:30 Urine Color YELLOW 04/15/18 14:20 Urine Appearance CLEAR 04/15/18 14:20 Urine pH 6.0 (5.0-7.5) 04/15/18 14:20 Ur Specific [place] > 1.035 (1.002-1.030) H 04/15/18 14:20 Urine Protein NEGATIVE (NEGATIVE) 04/15/18 14:20 Urine Ketones 1+ (NEGATIVE) H 04/15/18 14:20 Urine Blood 1+ (NEGATIVE) H 04/15/18 14:20 Urine Nitrate NEGATIVE (NEGATIVE) 04/15/18 14:20 Urine Bilirubin NEGATIVE (NEGATIVE) 04/15/18 14:20 Urine Urobilinogen NEGATIVE EU (0.2-1.0) 04/15/18 14:20 Ur Leukocyte Esterase NEGATIVE (NEGATIVE) 04/15/18 14:20 Urine RBC 15-25 /hpf (0-3) H 04/15/18 14:20 Urine WBC 1-3 /hpf (0-3) 04/15/18 14:20 Ur Epithelial Cells NONE SEEN /lpf (NONE-1+) 04/15/18 14:20 Urine Glucose NEGATIVE (NEGATIVE) 04/15/18 14:20 Assessment & Plan Plan: 87 y/o male presents with acute left groin pain s/p recent angiogram/TAVR/ pacemaker with large hematoma present. Coincidentally, he also melanoma mets. I spoke with Dr. Eddie Gandara who plans a lymphadenectomy in the afternoon and noted the hematoma has decreased in size since the angiogram took place. The pt also has a distal kidney stone which he should pass quite easily with the assistance of IVF, pain control/management, and continuation of Flomax. Many narcotics make him dizzy and nauseous, anti-emetics PRN. CBC/BMP/INR for tomorrow for monitoring renal function and electrolytes. Problems 1. Groin hematoma 2. Ureterolithiasis 3. Vertigo Diet: Cardiac, NPO at midnight VTE ppx: SCDs Code: Full Dispo: Admit to inpatient <Lindsay Vicente - Last Filed: 04/15/18 19:35> History and Physical - History of Present Illness Review of Systems Review of Systems: Physical Exam Physical Exam: Temp Pulse Resp BP Pulse Ox 36.9 C 65 18 159/76 H 99 04/15/18 15:56 04/15/18 15:56 04/15/18 15:56 04/15/18 15:56 04/15/18 15:56 Lab Data & Imaging Review 04/15/18 10:30 04/15/18 10:30 WBC 9.70 10^3/uL (3.80-9.50) H 04/15/18 10:30 RBC 4.03 10^6/uL (4.40-6.38) L 04/15/18 10:30 Hgb 13.7 g/dL (13.7-17.5) 04/15/18 10:30 POC Hgb 12.6 gm/dL (13.7-17.5) L 04/15/18 10:35 Hct 39.1 % (40.0-51.0) L 04/15/18 10:30 POC Hct 37 % (40-51) L 04/15/18 10:35 MCV 97.0 fL (81.5-99.8) 04/15/18 10:30 MCH 34.0 pg (27.9-34.1) 04/15/18 10:30 MCHC 35.0 g/dL (32.4-36.7) 04/15/18 10:30 RDW 12.2 % (11.5-15.2) 04/15/18 10:30 Plt Count 141 10^3/uL (150-400) L 04/15/18 10:30 MPV 8.9 fL (8.7-11.7) 04/15/18 10:30 Neut % (Auto) 46.6 % (39.3-74.2) 04/15/18 10:30 Lymph % (Auto) 40.3 % (15.0-45.0) 04/15/18 10:30 [place] % (Auto) 11.9 % (4.5-13.0) 04/15/18 10:30 Eos % (Auto) 0.6 % (0.6-7.6) 04/15/18 10:30 Baso % (Auto) 0.3 % (0.3-1.7) 04/15/18 10:30 Nucleat RBC Rel Count 0.0 % (0.0-0.2) 04/15/18 10:30 Absolute Neuts (auto) 4.52 10^3/uL (1.70-6.50) 04/15/18 10:30 Absolute Lymphs (auto) 3.91 10^3/uL (1.00-3.00) H 04/15/18 10:30 Absolute Monos (auto) 1.15 10^3/uL (0.30-0.80) H 04/15/18 10:30 Absolute Eos (auto) 0.06 10^3/uL (0.03-0.40) 04/15/18 10:30 Absolute Basos (auto) 0.03 10^3/uL (0.02-0.10) 04/15/18 10:30 Absolute Nucleated RBC 0.00 10^3/uL (0-0.01) 04/15/18 10:30 Immature Gran % 0.3 % (0.0-1.1) 04/15/18 10:30 Immature Gran # 0.03 10^3/uL (0.00-0.10) 04/15/18 10:30 PT 14.2 SEC (12.0-15.0) 04/15/18 16:57 INR 1.08 (0.83-1.16) 04/15/18 16:57 POC Sodium 143 mEq/L (135-145) 04/15/18 10:35 Sodium 140 mEq/L (135-145) 04/15/18 10:30 POC Potassium 4.0 mEq/L (3.3-5.0) 04/15/18 10:35 Potassium 4.4 mEq/L (3.5-5.2) 04/15/18 10:30 POC Chloride 109 mEq/L (97-110) 04/15/18 10:35 Chloride 112 mEq/L (97-110) H 04/15/18 10:30 Carbon Dioxide 17 mEq/l (22-31) L 04/15/18 10:30 Anion Gap 11 mEq/L (6-14) 04/15/18 10:30 POC BUN 18 mg/dL (7-23) 04/15/18 10:35 BUN 20 mg/dL (7-23) 04/15/18 10:30 Creatinine 1.2 mg/dL (0.7-1.3) 04/15/18 10:30 POC Creatinine 1.3 mg/dL (0.7-1.3) 04/15/18 10:35 Estimated GFR 57 04/15/18 10:30 Glucose 94 mg/dL (70-100) 04/15/18 10:30 POC Glucose 109 mg/dL (70-100) H 04/15/18 10:35 Calcium 9.5 mg/dL (8.5-10.4) 04/15/18 10:30 Urine Color YELLOW 04/15/18 14:20 Urine Appearance CLEAR 04/15/18 14:20 Urine pH 6.0 (5.0-7.5) 04/15/18 14:20 Ur Specific [place] > 1.035 (1.002-1.030) H 04/15/18 14:20 Urine Protein NEGATIVE (NEGATIVE) 04/15/18 14:20 Urine Ketones 1+ (NEGATIVE) H 04/15/18 14:20 Urine Blood 1+ (NEGATIVE) H 04/15/18 14:20 Urine Nitrate NEGATIVE (NEGATIVE) 04/15/18 14:20 Urine Bilirubin NEGATIVE (NEGATIVE) 04/15/18 14:20 Urine Urobilinogen NEGATIVE EU (0.2-1.0) 04/15/18 14:20 Ur Leukocyte Esterase NEGATIVE (NEGATIVE) 04/15/18 14:20 Urine RBC 15-25 /hpf (0-3) H 04/15/18 14:20 Urine WBC 1-3 /hpf (0-3) 04/15/18 14:20 Ur Epithelial Cells NONE SEEN /lpf (NONE-1+) 04/15/18 14:20 Urine Glucose NEGATIVE (NEGATIVE) 04/15/18 14:20 Assessment & Plan Assessment: Groin hematoma (Acute) Ureterolithiasis (Acute) Vertigo (Acute) Vomiting (Acute) Plan: PHYSICIAN ADDENDUM: Examined and assessed patient. 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 Recommend to proceed w/ surgery in AM. ASA had been held 4 days ago. -Agree w/ above plan. Flomax. Dilaudid prn pain. Antiemetics as needed. Lindsay Vicente DO
[2018-04-15] MEDS ORDERED: NS 1,000 ML IV SCH (16:45)
[2018-04-15] MEDS ORDERED: CEPACOL LOZENGE PO PRN (17:12)
[2018-04-15] MEDS ORDERED: BENZOCAINE UNIT DOSE SPRAY HURRICAINE MM PRN (17:12)
[2018-04-15] MEDS ORDERED: OXYMETAZOLINE 30 ML NASAL SPRAY EACHNARE PRN (17:16)
[2018-04-15 17:35] LABS: INR 1.08 (0.83-1.16); PROTIME(PATIENT) 14.2 SEC (12.0-15.0)
[2018-04-15] MEDS ORDERED: MECLIZINE HCL 12.5 MG TAB PO PRN (17:37)
--- NOTE | 2018-04-15 17:52 | PDCONSULT ---
[employer] Note: #[id number] Surgical Consult Dictated S MD Juliocesar, FACS
[2018-04-15] MEDS: LATANOPROST 0.005% 2.5 ML OPHT DROPS RTEYE SCH (18:11)
[2018-04-15] MEDS: ACETAMINOPHEN 325 MG TAB PO SCH ×2 (18:18→23:59)
[2018-04-15] MEDS: ATORVASTATIN CALCIUM 40 MG TAB PO SCH (18:18)
--- NOTE | 2018-04-15 18:41 | GHP ---
DATE OF ADMISSION: 04/15/2018 CHIEF COMPLAINT: Abdominal pain. HISTORY OF PRESENT ILLNESS: The patient is an 87-year-old male with a complicated history. In 2016, he underwent excision of a nodular melanoma of the left calf without sentinel node biop sy. He developed regional recurrence in the skin in 2017. At that time, he was in the process of ev aluation for severe aortic stenosis and underwent TAVR/pacemaker placement in January after a diagnos tic heart catheterization in December. Following this December catheterization which was performed through the left groin, the patient developed a considerable hematoma. He has had persistent pain a t that site since then. His TAVR was placed via the right femoral artery, which was uncomplicated. He was seen and evaluated by Dr. Grant Jeffers and at some point, a biopsy of an enlarged left ingui nal node was performed which showed metastatic melanoma. He was referred by Dr. Jeffers for left in guinal lymphadenectomy and was scheduled for surgery on April 19 with a preop visit in my office scheduled for today. At 3 o'clock in the morning, the patient was awoken by left lower quadrant abdominal pain and radiati on to the flank. The patient got up and sat on the toilet, thinking that if he had a bowel movement the pain would be resolved. After a bowel movement he had persistent pain deep in the left pelvis an d called 911 and came to the hospital for evaluation. He was seen in the emergency room by Dr. Cem Sarmiento and a CT scan was performed, which showed in addition to the previously known left inguinal adenopathy and resolving hematoma, that he had developed an obstructing stone at the ureterovesical junction. After receiving some fentanyl in the emergency department, he felt somewhat improved. The patient was admitted for observation, comfort measures and surgical consultation was requested. Anti cipating the need to proceed with this surgery, I recommended scheduling it for tomorrow unless there was some medical contraindication. PAST MEDICAL HISTORY: Significant for macular degeneration with severe visual impairment, vertigo, h yperlipidemia, aortic stenosis status post TAVR 02/08/2018, pacemaker placement 02/10/2018, prior mandi endectomy, chronic right shoulder osteoarthritis, pending total shoulder replacement. SOCIAL HISTORY: Patient is , lives independently, but no longer drives because of his vision. He does not smoke or drink alcohol. He is allergic to most opioids which cause severe nausea. ALLERGIES: Penicillin. CHRONIC MEDICATIONS: Include Lipitor, glucosamine, ibuprofen, meclizine, ranitidine. FAMILY HISTORY: Noncontributory. REVIEW OF SYSTEMS: Patient's deep left lower quadrant abdominal pain is resolved. He has persistent low-grade pain in the left groin. EXAMINATION: GENERAL: Reveals a slightly built elderly gentleman who is articulate, and in no acute distress. VITAL SIGNS: Blood pressure 159/76, heart rate is 65, respiratory rate is 18, O2 saturatio n is 99%. Temperature is 36.9. HEENT exam. NECK: Supple without adenopathy. Trachea is midline. CHEST: Clear. HEART: Regular in rate and rhythm with a 2 to 3/6 systolic ejection murmur. LUNGS: Clear with diminished breath sounds at both bases. ABDOMEN: Soft, nontender, without hepatospleno megaly or mass. The patient has multiple palpable enlarged nodes which remain mobile in the left lupe in, this from the actual hematoma is somewhat difficult clinically, but at least a 3 x 6 c m component of this would appear to be hematoma on CT. There does not appear to be a pseudoaneurysm on CT. The femoral vein and artery were visualized and there does not appear to be any deep pelvic a denopathy. Pedal pulses are +2 and symmetrical. There is no pitting edema. The wide excision of th e melanoma site was closed by secondary intention and a 2nd recurrence more close to the knee is heal ing with some secondary skin changes and hypertrophic scarring. IMPRESSION: 1. Clinical stage III melanoma. 2. Obstructing kidney stone with acute abdominal pain, currently resolved. 3. History of vertigo. 4. History of hyperlipidemia. 5. Status post TAVR and pacemaker placement January 2018. 6. Left groin hematoma post diagnostic catheterization. RECOMMENDATIONS: As the patient has been admitted for a different medical reason, I would defer to m angélica as to whether or not he is stable to proceed with surgery, but have tentatively scheduled him for surgery tomorrow at 3 in the afternoon (1st available time). We discussed the procedure as well as the need for a surgical drain after the procedure and expected recovery. I would recommend not d ischarging the patient immediately after surgery tomorrow to allow him time to recover and learn how to use his drain before returning home. Copy requested to: Rachel Lake /[id number]/JAYL
[2018-04-15] MEDS ORDERED: hydrALAZINE 20 MG/ML VIAL IVP PRN (19:40)
[2018-04-16] MEDS: ACETAMINOPHEN 325 MG TAB PO SCH ×3 (06:20→23:00)
[2018-04-16] MEDS: ATORVASTATIN CALCIUM 40 MG TAB PO SCH (08:52)
[2018-04-16] MEDS: TAMSULOSIN HCL 0.4 MG CAP PO SCH (08:52)
[2018-04-16] MEDS: LATANOPROST 0.005% 2.5 ML OPHT DROPS RTEYE SCH (08:53)
--- NOTE | 2018-04-16 09:12 | ASMTCMCOM ---
CM Note CM Note Notes: CM reviewed chart. Pt will most likely have surgery tomorrow w/ Dr. Gandara for a lymphadenectomy. Pt does not have therapies ordered at this time. Pt was living independently w/ his prior to being admitted. CM available for needs. Date Signed: 04/16/2018 09:11 AM Electronically Signed By:CATHERINE Skelton
--- NOTE | 2018-04-16 10:46 | PDMN ---
Medical Necessity Medical necessity: [facility] General Admission: 87 yo w/ primary c/o acute left groin pain s/p recent angiogram/TAVR/pacemaker with large hematoma present. Pt also with mets from melanoma to L groin - Surg consulted and lymphadenectomy pending medical clearance. Pt also with obstructing kidney stone w/ acute abd pain. Pt is NPO for upcoming procedure, IVF started, creat increased from WNL to 1.6 after IVF, Cont tele monitoring ordered. Admit to IP for further dx work up and monitoring, meets IP criteria for multiple medical issues and advanced age, anticipate>2MN hospital stay. Hx Metastatic Melanoma, severe visual impairment, TAVR 2018, Pacer 2018, vertigo, HLD
[2018-04-16] MEDS ORDERED: LR 1,000 ML IV ONE (14:51)
--- NOTE | 2018-04-16 15:34 | PDANEPAE ---
ANE History of Present Illness L groin exploration, lymphadenectomy ANE Past Medical History - Cardiovascular History Hx Hypertension: No Hx Arrhythmias: No Hx Chest Pain: Yes Hx Coronary Artery / Peripheral Vascular Disease: No Hx CHF / Valvular Disease: Yes Hx Palpitations: No - Pulmonary History Hx COPD: No Hx Asthma/Reactive Airway Disease: No Hx Recent Upper Respiratory Infection: No Hx Oxygen in Use at Home: No Hx Sleep Apnea: No Sleep Apnea Screening Result - Last Documented: Positive - Neurologic History Hx Cerebrovascular Accident: No Hx Seizures: No Hx Dementia: No - Endocrine History Hx Diabetes: No Endocrine History Comment: dyslipidemia - Renal History Hx Renal Disorders: No - Liver History Hx Hepatic Disorders: No - Neurological & Psychiatric Hx Hx Neurological and Psychiatric Disorders: No - Cancer History Hx Cancer: Yes Cancer History Comment: MELANOMA REMVL CHEST WALL. LT CALF - Congenital Disorder History Hx Congenital Disorders: No - GI History Hx Gastrointestinal Disorders: Yes - Chronic Pain History Chronic Pain: No - Surgical History Prior Surgeries: LT KNEE SCOPE. RT TOE TENDON REPAIRS. REMVL CHEST WALL MELANOMA. RT CLOSED FX TIB/FIB. DEVEN CATARACTS 2016 ANE Review of Systems Review of systems is: negative Review of Systems: - Exercise capacity Exercise capacity: limited by disability - Pacemaker Pacemaker Mode: DDDR ANE Patient History - Allergies Allergies/Adverse Reactions: Opioids - Morphine Analogues Allergy (Verified 04/15/18 09:52) Vomiting Penicillins Allergy (Verified 04/15/18 09:52) Unknown - Home Medications Home medications: home medication list seen and reviewed Home Medications: Atorvastatin Calcium [Lipitor 40 mg (*)] 80 mg PO DAILY 09/07/17 [Last Taken ] C/E/Zn/Cu/OM3/DHA/EPA/LUT/ZEAX [Preservision Areds 2 Softgel] 2 each PO BID [Last Taken 04/12/18] Glucosamine Sulfate [Glucosamine Sulfate 500 MG (*)] 500 mg PO TID 12/01/17 [ Last Taken 04/12/18] [place]-3 Fatty Acids [Fish Oil 1000 mg (*)] 1,000 mg PO BID 12/01/17 [Last Taken 04/12/18] Latanoprost 0.005% [Xalatan 0.005% (*)] 1 drops RTEYE DAILY 12/02/17 [Last Taken 04/14/18] Ibuprofen [Motrin (*)] 200 mg PO TID PRN 01/27/18 [Last Taken 04/12/18] Meclizine HCl [Meclizine HCl 12.5 mg (*)] 25 mg PO DAILY PRN 01/27/18 [Last Taken 04/12/18] Ranitidine HCl [Zantac] 150 mg PO BID PRN 01/27/18 [Last Taken 04/14/18] - NPO status NPO Status: no food or drink >8 hours NPO Since - Liquids (Date): 04/16/18 NPO Since - Liquids (Time): 08:52 NPO Since - Solids (Date): 04/16/18 NPO Since - Solids (Time): 07:00 - Anes Hx Anes Hx: no prior problems - Smoking Hx Smoking Status: Never smoked - Alcohol Use Alcohol Use: None - Family Anes Hx Family Anes Hx: none ANE Labs/Vital Signs - Labs Result Diagrams: 04/16/18 04:42 04/16/18 04:42 - Vital Signs Vital Signs: reviewed preoperatively; see RN documention for details Blood Pressure: 175/75 Heart Rate: 60 Respiratory Rate: 14 O2 Sat (%): 100 Height: 170.18 cm Weight: 72.575 kg ANE Physical Exam - Airway Neck exam: FROM Mallampati Score: Class 2 Mouth exam: normal dental/mouth exam - Pulmonary Pulmonary: no respiratory distress - Cardiovascular Cardiovascular: regular rate and rhythym - ASA Status ASA Status: III ANE Anesthesia Plan Anesthesia Plan: spinal Total IV Anesthesia: Yes
[2018-04-16] MEDS ORDERED: BUPIVACAINE 0.25% 10 ML SDV ONE (15:36)
[2018-04-16] MEDS ORDERED: BUPIVACAINE/DEXTROSE 7.5MG/ML 2 ML SPINAL AMP SP ONE (15:55)
[2018-04-16] MEDS ORDERED: PROPOFOL/EMULSION 500 MG/50 ML BOTTLE IV ONE (15:59)
[2018-04-16] MEDS ORDERED: LIDOCAINE 2% 100 MG/5 ML SYR ONE (15:59)
[2018-04-16] MEDS ORDERED: ceFAZolin 2 GM/DEXTROSE 100 ML IV ONE (16:02)
[2018-04-16] MEDS ORDERED: ceFAZolin 1 GM VIAL ONE ×2 (16:18)
--- NOTE | 2018-04-16 16:29 | HOSPPROG ---
Hospitalist Progress Note Assessment/Plan: 87 Yo male with metastatic melanoma and known hx of left groin hematoma and left inguinal node admitted with left sided abdominal pain and found to have left sided obstructing uretero vesicular junction stone measuring 2.5x3mm. #Nephrolithiasis -He is no longer symptomatic. The stone has likely passed #FERNANDO -He does not appear to have volume deficit -The stone was unilateral and caused Left sided hydronephrosis -for now would continue with IVF. Would continue this after surgery -will order urine studies -would avoid NSAIDs like Toradol if possible #Left groin hematoma following cardiac cath #Left inguinal node with LAD scheduled for surgery today #Hx of recent TAVR -hold Aspirin -will monitor fluid status closely SCD Inpatient Subjective: no cp or sob. awaiting surgery Objective: Vital Signs Temp Pulse Resp BP Pulse Ox 37.0 C 60 14 175/75 H 100 04/16/18 14:12 04/16/18 15:51 04/16/18 15:51 04/16/18 15:51 04/16/18 15:51 Laboratory Results 04/16/18 04:42 04/16/18 04:42 04/15/18 04/16/18 04/17/18 05:59 05:59 05:59 Intake Total 1690 1150 Output Total 300 Balance 1390 1150 PT 14.2 SEC (12.0-15.0) 04/15/18 16:57 INR 1.08 (0.83-1.16) 04/15/18 16:57 - Physical Exam Constitutional: no apparent distress Eyes: PERRL, EOMI Ears, Nose, Mouth, Throat: moist mucous membranes, hearing normal Cardiovascular: regular rate and rhythym, no murmur, rub, or gallop, No edema Respiratory: no respiratory distress Gastrointestinal: normoactive bowel sounds, soft, non-tender abdomen Skin: warm Neurologic: AAOx3 Psychiatric: interacting appropriately, not anxious, not encephalopathic Lymph, Heme, Immunologic: No petechiae ICD10 Worksheet Patient Problems: Problems Problem Status Onset Groin hematoma Acute Ureterolithiasis Acute Vertigo Acute Vomiting Acute Complete heart block Acute
--- NOTE | 2018-04-16 17:47 | POSTOPPROG ---
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
[2018-04-16] MEDS ORDERED: fentaNYL 100 MCG/2 ML INJ ONE (17:56)
[2018-04-16] MEDS ORDERED: LABETALOL HCL 5 MG/ML 20 ML MDV IVP PRN (18:02)
[2018-04-16] MEDS ORDERED: DEXAMETHASONE 4 MG/ML VIAL IVP PRN (18:02)
[2018-04-16] MEDS ORDERED: NALOXONE HCL 0.4 MG/ML INJ IVP PRN (18:02)
[2018-04-16] MEDS ORDERED: PROMETHAZINE HCL 25 MG/ML INJ IVP PRN (18:02)
[2018-04-16] MEDS ORDERED: oxyCODONE IR 5 MG TAB PO PRN (18:02)
[2018-04-16] MEDS ORDERED: MEPERIDINE 25 MG/0.5 ML AMP IVP PRN (18:02)
[2018-04-16] MEDS ORDERED: ONDANSETRON 4 MG/2 ML VIAL IVP PRN (18:02)
[2018-04-16] MEDS ORDERED: HYDROCODONE/APAP 5/325 TAB PO PRN (18:02)
--- NOTE | 2018-04-16 18:04 | POSTANESTH ---
Post Anesthetic Evaluation Cardiovascular Status: Similar to Pre-Op Cond Respiratory Status: Normal, Stable, Similar to Pre-op Cond. Level of Consciousness/Mental Status: Can Participate in Eval, Mildly Sleepy, Arousable Pain Control: Inadeq, Add Tx Required Nausea/Vomiting Control: Adequate, Prn Tx Ordered Complications Possibly Related to Anesthesia: None Noted
[2018-04-16] MEDS: fentaNYL 100 MCG/2 ML INJ IVP PRN ×2 (18:05→18:15)
[2018-04-16] MEDS ORDERED: HYDROmorphONE/DILAUDID 2 MG/ML INJ ONE (18:20)
[2018-04-16] MEDS: HYDROmorphONE/DILAUDID 2 MG/ML INJ IVP PRN ×2 (18:24→18:35)
[2018-04-16] MEDS ORDERED: HYDROCODONE/APAP 5/325 TAB ONE (19:02)
[2018-04-17] MEDS: ACETAMINOPHEN 325 MG TAB PO SCH ×4 (00:35→18:44)
[2018-04-17 04:53] LABS: PLATELET COUNT 100 10^3/uL (150-400)
--- NOTE | 2018-04-17 06:39 | GOP ---
DATE OF OPERATION: 04/16/2018 SURGEON: Eddie Gandara MD, FACS ANESTHESIA: Spinal. ANESTHESIOLOGIST: Diego Hernandez MD. PREOPERATIVE DIAGNOSIS: Left groin metastatic melanoma. POSTOPERATIVE DIAGNOSIS: Left groin metastatic melanoma. PROCEDURE PERFORMED: 1. Radical resection of malignant tumor, left groin. 2. Adjacent tissue transfer with sartorius muscle to cover the femoral vessels. FINDINGS: Large matted tumor measuring approximately 6 x 8 x 10 cm without discernible discrete lymph nodes associated with a resolving hematoma in the inferior aspect of the tumor mass. Tumor extending from the subcutaneous tissues to the femoral vessels and involving the saphenous vein. ESTIMATED BLOOD LOSS: 50 mL. DESCRIPTION OF PROCEDURE: After informed consent was obtained, the patient was brought to the operating room and placed under spinal anesthesia. The right groin and lower abdomen and upper thigh were prepped and draped in usual fashion. Before proceeding, a time-out and identification of the patient was performed. A large transverse incision was made centered over the mass, which was considerable in size, and one could see that it was in the superficial subcutaneous tissue. Skin flaps were gently elevated away from the tumor and along the anterior border and reflected cephalad and inferiorly. Circumferential dissection of the tumor began laterally in the subfascial plane and was carried down to the lateral aspect of the sartorius muscle. The dissection was then carried out medially and dissection performed immediately superficial to the femoral nerve. Small branches entering directly into the tumor were divided. Hemostasis was secured with hemoclips and suture ligatures. Cephalad dissection was carried up to the inguinal ligament, which was not involved with tumor, and then inferiorly and medially along the course of the inguinal ligament where the ilioinguinal nerve was sacrificed as it entered the tumor as well. This may have explained a good deal of the patient' s preoperative pain. Medially, the tumor was from its most superficial aspect under the skin and dissected posteriorly where it appeared to be invading the saphenous vein. The saphenous vein was clamped immediately adjacent to the saphenofemoral junction and distally divided and left attached to the tumor. The distal portion was doubly ligated with 2-0 silk sutures. The saphenofemoral junction was ligated with 2-0 silk suture followed by a continuous running 4-0 Prolene suture. Dissecting immediately above the femoral artery, several branches were noted to enter the tumor directly from the femoral artery, 1 of which was divided flush with the wall of the artery, and this was oversewn with interrupted 4-0 Prolene suture. Inferiorly, the previously described hematoma was encountered, and this was left intact and attached to the tumor as the 2 were inseparable. Specimen was delivered from the field and submitted for permanent section without orientation. The femoral vessels were considerably exposed, and there was no significant subcutaneous fat to cover them. I elected to transfer the sartorius muscle over the top of the vessels as follows: Muscles mobilized proximally detached from its insertion using cautery and rotated medially over the femoral vessels and sutured to the inguinal ligament with interrupted 2-0 Vicryl sutures. This provided an excellent muscular layer over the top of the vessels in the event that the patient would require subsequent radiation therapy. Hemostasis again was secured with hemoclips, cautery and suture ligatures. Once hemostasis was secured, a 10 mm flat Raul-Gregg drain was brought through the superior skin flap and secured to the skin with 3-0 silk suture. Subcutaneous tissues were approximated with 2-0 Vicryl suture and skin was closed with jeny. The patient was returned to the recovery room in satisfactory condition. Needle, sponge, and instrument counts were correct. COMPLICATIONS: None. Copy requested to: Shannon Baez Dr. /[id number]/MODL MTDGeorgina
[2018-04-17] MEDS: ASPIRIN 325 MG TAB PO SCH (09:46)
[2018-04-17] MEDS: LATANOPROST 0.005% 2.5 ML OPHT DROPS RTEYE SCH (09:46)
[2018-04-17] MEDS: ATORVASTATIN CALCIUM 40 MG TAB PO SCH (09:46)
[2018-04-17] MEDS: traMADol 50 MG TAB PO PRN (09:47)
[2018-04-17] MEDS: TAMSULOSIN HCL 0.4 MG CAP PO SCH (09:47)
--- NOTE | 2018-04-17 10:08 | SOAPPROG ---
SOAP Progress Note Assessment/Plan: Assessment:s/p radical resection left groin tumor/sartorius flap coverage femoral vessels for metastatic melanoma s/p TAVR Plan:restart ASA PT/OT increase activity [facility] planning 04/17/18 10:06 Subjective: awake/alert, reports incisional pain Objective: Vital Signs Temp Pulse Resp BP Pulse Ox 36.6 C 60 18 137/60 H 97 04/17/18 07:37 04/17/18 07:37 04/17/18 07:37 04/17/18 09:39 04/17/18 09:39 Laboratory Results 04/17/18 04:28 04/17/18 04:28 04/16/18 04/17/18 04/18/18 05:59 05:59 05:59 Intake Total 1690 2150 1162.5 Output Total 300 790 660 Balance 1390 1360 502.5 PT 14.2 SEC (12.0-15.0) 04/15/18 16:57 INR 1.08 (0.83-1.16) 04/15/18 16:57 Physical Exam - Physical Exam General Appearance: alert, mild distress Respiratory: lungs clear Cardiac/Chest: regular rate, rhythm Peripheral Pulses: 2+: dorsalis-pedis (R), dorsalis-pedis (L) Abdomen: non-tender, soft Extremities: other (left groin dressing dry/intact, sanguinous JAYLYN drainage) Neuro/Psych: alert, normal mood/affect, oriented x 3, sensory deficit (left anterior thigh numbness) ICD10 Worksheet Patient Problems: Problems Problem Status Onset Groin hematoma Acute Ureterolithiasis Acute Vertigo Acute Vomiting Acute Complete heart block Acute
--- NOTE | 2018-04-17 13:29 | ASMTCMCOM ---
CM Note CM Note Notes: Spoke with pt, family and hospitalist in the room. Pt lives independently with , however surgeon consulted CM for possible home care needs. Therapies have not yet evaluated. Pt unconvinced that he will need home care as he has a well-oiled routine of exercise including walking the dog and swimming. Family feels RN may be helpful, and CM suggested PT would be usefull in a home full of stairs and a new hip incision. Pt to consider and report back to CM tomorrow. D/C Plan: TBD, possibly home care Date Signed: 04/17/2018 01:28 PM Electronically Signed By:Sydney Padilla
--- NOTE | 2018-04-17 14:38 | HOSPPROG ---
Hospitalist Progress Note Assessment/Plan: 87 Yo male with metastatic melanoma and known hx of left groin hematoma and left inguinal node admitted with left sided abdominal pain and found to have left sided obstructing uretero vesicular junction stone measuring 2.5x3mm. #Nephrolithiasis -He is no longer symptomatic. The stone has likely passed #FERNANDO, resolved with IVF and passing of stone -would avoid NSAIDs like Toradol if possible #Left groin hematoma following cardiac cath #Left inguinal node, s/p radical resection of metastasis on 04/16 #Hx of recent TAVR -Aspirin -will monitor fluid status closely #thrombocytopenia SCD Inpatient Plan: post op care pain mgmt stop IVF keep overnight will need f/u with Dr. Jeffers Subjective: no cp or sob. pain is well controlled. Objective: Vital Signs Temp Pulse Resp BP Pulse Ox 36.9 C 79 14 144/79 H 95 04/17/18 12:00 04/17/18 12:00 04/17/18 12:00 04/17/18 12:00 04/17/18 12:00 Laboratory Results 04/17/18 04:28 04/17/18 04:28 04/16/18 04/17/18 04/18/18 05:59 05:59 05:59 Intake Total 1690 2150 1162.5 Output Total 300 790 660 Balance 1390 1360 502.5 PT 14.2 SEC (12.0-15.0) 04/15/18 16:57 INR 1.08 (0.83-1.16) 04/15/18 16:57 - Physical Exam Constitutional: no apparent distress Eyes: PERRL Ears, Nose, Mouth, Throat: moist mucous membranes, hearing normal Cardiovascular: regular rate and rhythym Respiratory: no respiratory distress, no rales or rhonchi, clear to auscultation Gastrointestinal: normoactive bowel sounds, soft, non-tender abdomen Skin: warm Neurologic: AAOx3 Psychiatric: interacting appropriately, not anxious, not encephalopathic Lymph, Heme, Immunologic: No petechiae ICD10 Worksheet Patient Problems: Problems Problem Status Onset Groin hematoma Acute Ureterolithiasis Acute Vertigo Acute Vomiting Acute Complete heart block Acute
[2018-04-18] MEDS: ACETAMINOPHEN 325 MG TAB PO SCH ×3 (00:26→12:26)
[2018-04-18 07:54] VITALS: BP 143/66
[2018-04-18] MEDS: ASPIRIN 325 MG TAB PO SCH (08:27)
[2018-04-18] MEDS: ATORVASTATIN CALCIUM 40 MG TAB PO SCH (08:27)
[2018-04-18] MEDS: TAMSULOSIN HCL 0.4 MG CAP PO SCH (08:27)
[2018-04-18] MEDS: traMADol 50 MG TAB PO PRN ×2 (08:27→14:28)
--- NOTE | 2018-04-18 11:33 | PDDCSUM ---
Discharge Summary Discharge Summary: #[id number] S MD Juliocesar, FACS
--- NOTE | 2018-04-18 11:59 | ASMTLACE ---
[place] Length of stay for Answers: 2 days current admission Acuity / Level of Answers: Yes Care: Did the patient have an inpatient admission? Comorbidities - select Answers: Coronary Artery Disease all that apply # of Emergency department Answers: 1-2 visits in the last 6 months Score: 8 Date Signed: 04/18/2018 11:58 AM Electronically Signed By:Merle Martinez RN
--- NOTE | 2018-04-18 12:01 | ASMTDCNOTE ---
Case Management Discharge Discharge Order Complete? Answers: Yes Patient to Obtain Answers: via Family Medications Transportation Arranged Answers: Family/Friends Family Notified Answers: Yes Discharge Comments Notes: Medically cleared for discharge to home per surgery. No needs at this time. CM available should needs arise. Date Signed: 04/18/2018 12:00 PM Electronically Signed By:Merle Martinez RN
[2018-04-18] MEDS: LATANOPROST 0.005% 2.5 ML OPHT DROPS RTEYE SCH (12:25)
--- NOTE | 2018-04-18 14:25 | GDS ---
DISCHARGE DIAGNOSES: 1. Obstructing left kidney stone with left lower quadrant abdominal and flank pain. 2. Left groin malignancy/metastatic melanoma. 3. Status post transcatheter aortic valve replacement. 4. Hypertension. 5. Benign prostatic hyperplasia. 6. Indwelling pacemaker. 7. History of chronic paroxysmal atrial fibrillation. 8. Gastroesophageal reflux disease. 9. Osteoarthritis. 10. Macular degeneration. DISCHARGE MEDICATIONS: Tylenol 650 mg p.o. q.6 hours p.r.n., Lipitor 80 mg p.o. daily, Xalatan 0.005 % 1 drop to the right eye daily, meclizine 12.5 mg p.o. daily p.r.n. vertigo, Zofran 4 mg p.o. q.4 ho urs p.r.n. #10, tamsulosin 0.4 mg p.o. daily, tramadol 50 mg p.o. q.6 hours p.r.n. #10, glucosamine, ibuprofen, multivitamins, omega-3 fatty acids, and ranitidine. HOSPITAL COURSE: For details of admission history and physical, please see dictated summary. Briefl y, the patient is an 87-year-old male who underwent excision of a left calf melanoma in 2017. He sub sequently developed symptomatic aortic stenosis, underwent TAVR, and developed a left groin hematoma. Some time in the evaluation of this, lymphadenopathy was noted and a biopsy was performed, which sh owed metastatic melanoma. I saw the patient approximately 2 weeks prior to surgery when he was trying to get scheduled for a [facility] total shoulder replacement with Dr. Johnson, and he was referred by Dr. Jeffers for left inguinal lymph node dissection. Clinically, patient had a large tumor in the left groin that was involving m ultiple nodes and a resolving hematoma. He was scheduled for surgery initially on 04/19/2018, at [facility], but developed severe left lower quadrant flank pain on the morning of admission. He came to the hospital and CT scan was performed, which showed mild hydronephrosis on the left in th e ureter and a stone at the end ureterovesical junction. Patient is symptomatically improved after h ospitalization for the kidney stone with narcotic analgesics and probably passed the stone. Because he was hospitalized here, I recommended proceeding with surgery, and it was scheduled for Thu afternoon on 06/17. At time of surgery, patient was found to have a large confluent tumor mass wi thout discernible separately identifiable lymph nodes. It was invading the saphenous vein, which was resected at the saphenofemoral junction and very close to the femoral artery and nerve. After this was resected, the bare vessels and nerve were covered with a sartorius flap and a JAYLYN drain was left i n place. Patient did remarkably well postoperatively. He became ambulatory within 24 hours of surgery, was ab le to void spontaneously and had pain controlled with minimal medications, including Tylenol and p.r. n. tramadol. He was instructed in drain care activities and wound care, and will follow up in my office later this week for drain removal and review of final pathology. CONDITION AT TIME OF DISCHARGE: Improved. /[id number]/MODL
== END 2018-04-18 15:12 | disposition home or self-care (01) | DRG 674 ==
LOC: EDUNIT# → F1N 16:00
PROVIDERS: ADMIT Internal Medicine; ATTEND Surgery
PROC: 0JRM07Z Replacement of Left Upper Leg Subcutaneous Tissue and Fascia with Autologous Tissue Substitute, Open Approach (ICD-10-PCS; principal; 2018-04-16 14:30)
PROC: 0HXJXZZ Transfer Left Upper Leg Skin, External Approach (ICD-10-PCS; principal; 2018-04-16 14:30)
PROC: 07BJ0ZZ Excision of Left Inguinal Lymphatic, Open Approach (ICD-10-PCS; principal; 2018-04-16 14:30)
PROC: 0JBM0ZZ Excision of Left Upper Leg Subcutaneous Tissue and Fascia, Open Approach (ICD-10-PCS; principal; 2018-04-16 14:30)
DX: N13.2 Hydronephrosis with renal and ureteral calculous obstruction (principal); C77.4 Secondary and unspecified malignant neoplasm of inguinal and lower limb lymph nodes; Z85.820 Personal history of malignant melanoma of skin; L76.32 Postprocedural hematoma of skin and subcutaneous tissue following other procedure; I10 Essential (primary) hypertension; I48.0 Paroxysmal atrial fibrillation; Z95.0 Presence of cardiac pacemaker; Z95.3 Presence of xenogenic heart valve; N40.0 Benign prostatic hyperplasia without lower urinary tract symptoms; K21.9 Gastro-esophageal reflux disease without esophagitis; M19.011 Primary osteoarthritis, right shoulder; H35.30 Unspecified macular degeneration; E78.5 Hyperlipidemia, unspecified
CPT/HCPCS: 82435-PO; 82565-PO; 82947-PO; 84132-PO; 84295-PO; 84520-PO; 85014-PO; 96374; 97116-GP; 97162-GP; 97165-GO; G8978-GP-CJ; G8979-GP-CI; G8987-GO-CJ; G8988-GO-CI; J0690; J1170; J1885; J2001; J2405; J2704; J3010; Q9967

== ENCOUNTER → 2018-05-03 | Outpatient (CLI) | payer OTHER, BC | LOC: FIMAGING 12:08 | PROVIDERS: ATTEND Surgery | DX: I82.812 Embolism and thrombosis of superficial veins of left lower extremity (principal) ==

== ENCOUNTER → 2018-06-15 | Outpatient (CLI) | payer OTHER, BC ==
[~2018-06-15] MED LIST changes: -ASPIRIN EC 325 MG TAB PO ONE; -DIAZEPAM 5 MG TAB PO ONE; -FAMOTIDINE 20 MG TAB PO ONE; +GADOBUTROL 10 ML VIAL IVP ONE; -NS 1,000 ML IV ONE; -diphenhydrAMINE 25 MG CAP PO ONE
== END ==
LOC: FIMAGING 08:49
PROVIDERS: ATTEND Internal Medicine Hematology & Oncology
DX: C43.9 Malignant melanoma of skin, unspecified (principal); C79.89 Secondary malignant neoplasm of other specified sites
CPT/HCPCS: 70553; A9585

== ENCOUNTER 2018-07-26 05:53 | Inpatient (IN) | payer OTHER, BC ==
[2018-07-26] MEDS ORDERED: ACETAMINOPHEN 500 MG TAB PO ONE (06:15)
[2018-07-26] MEDS ORDERED: VANCOMYCIN PHARMACY TO DOSE MISC ONE (06:15)
[2018-07-26] MEDS ORDERED: LR 1,000 ML IV SCH ×2 (06:15→09:00)
[2018-07-26] MEDS ORDERED: ceFAZolin 2 GM/DEXTROSE 100 ML IV ONE (06:30)
--- NOTE | 2018-07-26 06:37 | PDHPUP ---
History & Physical Update H&P update statement: This history and physical update is based on an assessment of the patient which was completed after admission or registration (within 24 hours), but prior to the surgery/procedure. H&P update: no change in patient's condition since H&P completed
--- NOTE | 2018-07-26 06:38 | PDIAF ---
- Diagnosis Diagnosis: right shoulder djd Code Status: Full Code - Medication Management Discharge Medications: electronically signed and located in the Home Medication List. - Orders Services needed: Home Care, Physical Therapy Home Care Face to Face: I certify that this patient was under my care and that I had the required [id number] encounter meeting the encounter requirements on the discharge day. My findings support the fact that the patient is homebound as defined in Home Care Face to Face Continued: CMS Chapter 7 Medicare Benefits Manual 30.1.1 , The condition of the patient is such that there exists a normal inability to leave home and consequently, leaving home would require a considerable and taxing effort. Diet Recommendation: no restrictions on diet Diet Texture: Regular Texture Diet Additional Instructions: TOTAL JOINT ARTHROPLASTY DISCHARGE INSTRUCTIONS 1. Your surgeon follows the [facility] protocol for reducing your risk of DVT (blood clots) following surgery. Medication will be ordered to prevent blood clots. A sudden increase in calf pain and/or swelling could indicate a blood clot in your leg. If this occurs, please call your surgeon or his/her client services assistant. An ultrasound of the leg may be necessary to diagnose a blood clot. If you have conditions that make you a higher risk for blood clots, your surgeon may use more aggressive ways to prevent them. Notify your surgeon if you think you are a high risk for blood clots. 2. Wear your white surgical stockings (SYED hose) for 2 weeks. This decreases your swelling and may help prevent blood clots. It is ok to remove SYED hose at night time to give your legs a break. 3. Swelling and bruising in the surgical leg is common. If you feel that it is excessive, please notify your surgeon. 4. Elevate your surgical leg with the ankle above the hip several times every day. Please keep the leg straight when you elevate by putting pillows under your foot. Do not put pillows under your knee. This will make being able to fully straighten more difficult. This is uncomfortable, but try to do it as much as possible. 5. For total knee replacements use compressive wrap on your knee for 3-5 days after surgery, then you can discontinue it. 6. Use a walker or crutches for 1-2 weeks. Progress your weight-bearing as tolerated. You may start to use a cane when you feel stable and safe. 7. You will receive physical therapy instructions in the hospital. Continue those exercises at home. There are additional exercises in the total joint booklet you were given before surgery. Outpatient physical therapy will begin 7- 10 days after surgery. Please schedule this in advance. 8. Use ice on your knee at least 3-5 times every day for 30 minutes. This helps reduce pain and swelling. Also use it at night before falling asleep. 9. Leave your surgical dressing in place for 2 weeks. Your dressing is water resistant, but not waterproof. Cover it with Saran Wrap or Cubev-o-Zgdg before showering. You may shower as soon as you feel safe entering a shower. If you notice bleeding from your incision 2 or 3 days after surgery, please notify your surgeon. 10. Due to narcotics, decreased activity and altered diet, most patients experience constipation after surgery. Use khty-qky-tsfucid stool softeners while you are on narcotics. 11. You may drive a car when you are comfortable bearing weight, have good muscular control of your leg and are off narcotics. This usually occurs 2-4 weeks after surgery, depending on which leg was operated on. 12. If there are questions not addressed here, please refer the [facility] book given for more information. If you still have questions, please contact your surgeon s office. 13. If you have a life-threatening emergency, please call 911 and go to the emergency room immediately. For non-life threatening emergencies, please call your physicians office for advice before going to the emergency room. - Follow Up Care Current Providers and Referrals: Sheldon Johnson MD [Primary Care Provider] -
[2018-07-26] MEDS ORDERED: POLYMYXIN B SULFATE 500,000 UNIT/10 ML SYR IRR ONE (06:39)
[2018-07-26] MEDS ORDERED: CALCIUM CHLORIDE 1 GM/10 ML INJ ONE (06:39)
[2018-07-26] MEDS ORDERED: BUPIVACAINE/EPI 0.5% 30 ML SDV ONE (06:39)
[2018-07-26] MEDS ORDERED: THROMBIN (BOVINE) 5,000 UNIT VIAL TP ONE (06:39)
[2018-07-26] MEDS ORDERED: BACITRACIN 50,000 UNITS/10 ML SYR IRR ONE (06:40)
[2018-07-26] MEDS ORDERED: fentaNYL 100 MCG/2 ML INJ ONE ×2 (07:13→09:17)
[2018-07-26] MEDS ORDERED: PROPOFOL 200 MG/20 ML VIAL ONE (07:13)
[2018-07-26] MEDS ORDERED: ROCURONIUM 50 MG/5 ML VIAL ONE (07:14)
[2018-07-26] MEDS ORDERED: RANITIDINE 50 MG/2 ML VIAL ONE (07:18)
--- NOTE | 2018-07-26 07:20 | PDANEPAE ---
ANE Past Medical History - Cardiovascular History Hx Hypertension: No Hx Arrhythmias: No Hx Chest Pain: No Hx Coronary Artery / Peripheral Vascular Disease: No Hx CHF / Valvular Disease: Yes Hx Palpitations: No Cardiovascular History Comment: TAVR 01/2018 --> [facility], now has PPM, PPM dependent - Pulmonary History Hx COPD: No Hx Asthma/Reactive Airway Disease: No Hx Recent Upper Respiratory Infection: No Hx Oxygen in Use at Home: No Hx Sleep Apnea: No Sleep Apnea Screening Result - Last Documented: Positive - Neurologic History Hx Cerebrovascular Accident: No Hx Seizures: No Hx Dementia: No - Endocrine History Hx Diabetes: No Endocrine History Comment: dyslipidemia - Renal History Hx Renal Disorders: No Renal History Comment: RECENTLY PASSED KIDNEY STONE - Liver History Hx Hepatic Disorders: No - Neurological & Psychiatric Hx Hx Neurological and Psychiatric Disorders: Yes Neurological / Psychiatric History Comment: Melanoma mets s/p cyberknife surgery - Cancer History Hx Cancer: Yes Cancer History Comment: MELANOMA REMVL CHEST WALL. LT CALF - Congenital Disorder History Hx Congenital Disorders: No - GI History GERD: no, mild Hx Gastrointestinal Disorders: Yes - Other Health History Other Health History: MACULAR DEGENERATION BLIND RT EYE. RT EYE SWELLING. DENTAL IMPLANTS. LT KNEE GETTING LUBRICATING INJECTIONS - Chronic Pain History Chronic Pain: No - Surgical History Prior Surgeries: LT KNEE SCOPE. RT TOE TENDON REPAIRS. REMVL CHEST WALL MELANOMA. RT CLOSED FX TIB/FIB. DEVEN CATARACTS 2016 ANE Review of Systems Review of Systems: - Exercise capacity METS (RN): 5 METS - Pacemaker Pacemaker Deck[employer]: Medtronic Pacemaker Model: 60 Pacemaker Mode: DDD Date Pacemaker Last Checked: 05/03/18 ANE Patient History - Allergies Allergies/Adverse Reactions: Opioids - Morphine Analogues Allergy (Verified 04/15/18 09:52) Vomiting Penicillins Allergy (Verified 04/15/18 09:52) Unknown - Home Medications Home Medications: Atorvastatin Calcium [Lipitor 40 mg (*)] 80 mg PO DAILY 09/07/17 [Last Taken ] C/E/Zn/Cu/OM3/DHA/EPA/LUT/ZEAX [Preservision Areds 2 Softgel] 2 each PO BID [Last Taken 07/19/18] Glucosamine Sulfate [Glucosamine Sulfate 500 MG (*)] 500 mg PO TID 12/01/17 [ Last Taken 07/19/18] Pindall-3 Fatty Acids [Fish Oil 1000 mg (*)] 1,000 mg PO BID 12/01/17 [Last Taken 07/19/18] Latanoprost 0.005% [Xalatan 0.005% (*)] 1 drops RTEYE DAILY 12/02/17 [Last Taken 07/25/18] Ibuprofen [Motrin (*)] 200 mg PO TID PRN 01/27/18 [Last Taken 07/19/18] Ranitidine HCl [Zantac] 150 mg PO BID PRN 01/27/18 [Last Taken 07/24/18] traMADol [Ultram 50 mg (*)] 07/26/18 [Last Taken 07/25/18] - NPO status NPO Since - Liquids (Date): 07/25/18 NPO Since - Liquids (Time): 19:00 NPO Since - Solids (Date): 07/25/18 NPO Since - Solids (Time): 18:00 - Smoking Hx Smoking Status: Never smoked ANE Labs/Vital Signs - Vital Signs Vital Signs: reviewed preoperatively; see RN documention for details Blood Pressure: 147/80 Heart Rate: 82 Respiratory Rate: 16 O2 Sat (%): 98 Height: 170.18 cm Weight: 68.039 kg ANE Physical Exam - Airway Neck exam: decreased ROM Mallampati Score: Class 4 Mouth exam: normal dental/mouth exam - Pulmonary Pulmonary: clear to auscultation - Cardiovascular Cardiovascular: regular rate and rhythym - ASA Status ASA Status: III ANE Anesthesia Plan Anesthesia Plan: general endotracheal anesthesia Regional Anesthesia: interscalene BP NB
[2018-07-26] MEDS ORDERED: KETOROLAC 30 MG/1 ML SDV ONE (07:22)
[2018-07-26] MEDS ORDERED: ROPIVACAINE HCL 150 MG/30 ML INJ ONE (07:27)
[2018-07-26] MEDS ORDERED: PHENYLEPHRINE 10 MG/ML SDV ONE (08:27)
[2018-07-26] MEDS ORDERED: DEXAMETHASONE 4 MG/ML VIAL ONE (08:27)
[2018-07-26] MEDS ORDERED: ONDANSETRON 4 MG/2 ML VIAL IVP PRN ×2 (08:31→08:56)
[2018-07-26] MEDS ORDERED: METOCLOPRAMIDE 10 MG/2 ML VIAL IVP PRN ×2 (08:31→08:56)
[2018-07-26] MEDS ORDERED: DEXAMETHASONE 4 MG/ML VIAL IVP PRN (08:31)
[2018-07-26] MEDS ORDERED: LR 500 ML IV PRN (08:31)
[2018-07-26] MEDS ORDERED: MEPERIDINE 25 MG/0.5 ML AMP IVP PRN (08:31)
[2018-07-26] MEDS ORDERED: NALOXONE HCL 0.4 MG/ML INJ IVP PRN (08:31)
[2018-07-26] MEDS ORDERED: ALBUTEROL 3 ML DEYVIAL IH PRN (08:31)
[2018-07-26] MEDS ORDERED: ACETAMINOPHEN 500 MG TAB PO PRN (08:31)
[2018-07-26] MEDS ORDERED: HYDROmorphONE/DILAUDID 2 MG/ML INJ IVP PRN (08:31)
[2018-07-26] MEDS ORDERED: ONDANSETRON 4 MG/2 ML VIAL ONE ×2 (08:35→09:17)
[2018-07-26] MEDS ORDERED: SUGAMMADEX SODIUM 200 MG/2 ML VIAL IVP ONE (08:48)
[2018-07-26] MEDS ORDERED: LACTULOSE 20 GM/30 ML UDCUP PO PRN (08:56)
[2018-07-26] MEDS ORDERED: DIPHENOXYLATE/ATROPINE LOMOTIL 1 TAB PO PRN (08:56)
[2018-07-26] MEDS ORDERED: MAGNESIUM HYDROXIDE 30 ML UDCUP PO PRN (08:56)
[2018-07-26] MEDS ORDERED: PROMETHAZINE HCL 25 MG SUPPR PR PRN (08:56)
[2018-07-26] MEDS ORDERED: TEMAZEPAM 15 MG CAP PO PRN (08:56)
[2018-07-26] MEDS ORDERED: oxyCODONE IR 5 MG TAB PO PRN (08:56)
[2018-07-26] MEDS ORDERED: POLYETHYLENE GLYCOL 3350 17 GM PKT PO PRN (08:56)
[2018-07-26] MEDS ORDERED: ONDANSETRON DISINTEGRATING 4 MG TAB PO PRN (08:56)
[2018-07-26] MEDS ORDERED: BISACODYL 10 MG SUPP PR PRN (08:56)
[2018-07-26] MEDS ORDERED: diphenhydrAMINE 25 MG CAP PO PRN (08:56)
[2018-07-26] MEDS ORDERED: PROMETHAZINE HCL 25 MG/ML INJ IVP PRN (08:56)
--- NOTE | 2018-07-26 08:56 | POSTOPPROG ---
Post Op Note Date of Operation: 07/26/18 Surgeon: Sheldon Johnson Utility Hand: lesly Anesthesiologist: jossie Anesthesia: GET(General Endotracheal) Pre-op Diagnosis: right shoulder djd Post-op Diagnosis: same Indication: clara Procedure: right tsa Inf/Abcess present in the surg proc area at time of surgery?: No Depth: Deep Incisional (Fascial) EBL: 100-500
[2018-07-26] MEDS ORDERED: NON-FORMULARY NEW DRUG (Ranitidine Hcl [Zantac] 150 MG) PO PRN (08:59)
[2018-07-26] MEDS: LATANOPROST 0.005% 2.5 ML OPHT DROPS RTEYE SCH (09:00)
[2018-07-26] MEDS: PRESERVISION AREDS2 FORMULA EYE VIT 1 EACH PO SCH ×2 (09:00→20:09)
[2018-07-26] MEDS: ATORVASTATIN CALCIUM 40 MG TAB PO SCH (09:00)
[2018-07-26] MEDS: ASPIRIN 325 MG TAB PO SCH (09:00)
[2018-07-26] MEDS: SENNOSIDES/DOCUSATE SODIUM TAB PO SCH ×2 (09:00→20:09)
[2018-07-26] MEDS ORDERED: PROMETHAZINE HCL 25 MG/ML INJ ONE (09:17)
[2018-07-26] MEDS: fentaNYL 100 MCG/2 ML INJ IVP PRN ×3 (09:20→09:43)
--- NOTE | 2018-07-26 13:35 | POSTANESTH ---
Post Anesthetic Evaluation Cardiovascular Status: Normal, Stable Respiratory Status: Normal, Stable Level of Consciousness/Mental Status: Can Participate in Eval Pain Control: Adequate, Prn Tx Ordered Nausea/Vomiting Control: Adequate, Prn Tx Ordered
[2018-07-26] MEDS: ceFAZolin 2 GM/DEXTROSE 100 ML IV SCH ×2 (14:12→22:55)
[2018-07-26] MEDS: ACETAMINOPHEN 325 MG TAB PO SCH ×2 (14:13→20:10)
[2018-07-26] MEDS: TRANEXAMIC ACID 650 MG TAB PO SCH ×2 (14:13→22:54)
--- NOTE | 2018-07-26 15:17 | PDMN ---
Medical Necessity Medical necessity: Pt meets IP criteria as of 07/26/2018 per and SHARRON [id number] ( Total Shoulder); Medicare inpatient only procedure.
[2018-07-26] MEDS: traMADol 50 MG TAB PO PRN ×2 (17:31→23:37)
[2018-07-26] MEDS: CYCLOBENZAPRINE 10 MG TAB PO PRN (17:32)
[2018-07-26] MEDS: FAMOTIDINE 20 MG TAB PO SCH (20:09)
[2018-07-27] MEDS: ACETAMINOPHEN 325 MG TAB PO SCH ×2 (02:41→08:06)
[2018-07-27] MEDS: CYCLOBENZAPRINE 10 MG TAB PO PRN (02:48)
[2018-07-27] MEDS: TRANEXAMIC ACID 650 MG TAB PO SCH (05:33)
[2018-07-27 07:37] VITALS: BP 129/70
--- NOTE | 2018-07-27 07:44 | SOAPPROG ---
SOAP Progress Note Assessment/Plan: Assessment: s/p right tsa Plan: d.c home pendulum only dvt precautions reviewed fu at two weeks 07/27/18 07:42 Subjective: pain no cp or sob paulina po Objective: Vital Signs Temp Pulse Resp BP Pulse Ox 36.4 C 66 17 129/70 H 98 07/27/18 07:37 07/27/18 07:37 07/27/18 07:37 07/27/18 07:37 07/27/18 07:37 Laboratory Results 07/27/18 04:25 07/26/18 07/27/18 07/28/18 05:59 05:59 05:59 Intake Total 2004 Output Total 200 Balance 1805 dressing intact intact pf,df,ehl toes warm and pink neg homans xrays stable alignement no fx or lucency ICD10 Worksheet Patient Problems: Problems Problem Status Onset Complete heart block Acute Groin hematoma Acute Ureterolithiasis Acute Vertigo Acute Vomiting Acute
[2018-07-27] MEDS: PRESERVISION AREDS2 FORMULA EYE VIT 1 EACH PO SCH (08:06)
[2018-07-27] MEDS: ATORVASTATIN CALCIUM 40 MG TAB PO SCH (08:06)
[2018-07-27] MEDS: LATANOPROST 0.005% 2.5 ML OPHT DROPS RTEYE SCH (08:07)
[2018-07-27] MEDS: SENNOSIDES/DOCUSATE SODIUM TAB PO SCH (08:08)
[2018-07-27] MEDS: FAMOTIDINE 20 MG TAB PO SCH (08:09)
[2018-07-27] MEDS: ASPIRIN 325 MG TAB PO SCH (08:09)
[2018-07-27] MEDS: traMADol 50 MG TAB PO PRN (10:39)
--- NOTE | 2018-07-27 13:51 | ASMTLACE ---
LACE Length of stay for Answers: 2 days current admission Acuity / Level of Answers: Yes Care: Did the patient have an inpatient admission? Comorbidities - select Answers: Congestive heart failure all that apply # of Emergency department Answers: 1-2 visits in the last 6 months Score: 8 Date Signed: 07/27/2018 01:47 PM Electronically Signed By:RADAMES Hernandez
--- NOTE | 2018-07-27 13:52 | ASMTCMCOM ---
CM Note CM Note Notes: Pt had planned shoulder surgery. PT/OT rec home/outpatient. Pt resides with his spouse, he has a dghtr who has come in to [facility] to help in his recovery too. Pt has outpatient PT he plans to go to. No CM d/c needs identified. Date Signed: 07/27/2018 01:48 PM Electronically Signed By:RADAMES Hernandez
== END 2018-07-27 12:05 | disposition home or self-care (01) | DRG 483 ==
LOC: F3N 05:53
PROVIDERS: ADMIT Orthopaedic Surgery; ATTEND Orthopaedic Surgery
PROC: 0RRJ0J6 Replacement of Right Shoulder Joint with Synthetic Substitute, Humeral Surface, Open Approach (ICD-10-PCS; principal; 2018-07-26 07:15)
DX: M19.011 Primary osteoarthritis, right shoulder (principal)
CPT/HCPCS: 97116-GP; 97161-GP; 97166-GO; 97535-GO; J0690; J1100; J1885; J2370; J2405; J2550; J2704; J2780; J2795; J3010

== ENCOUNTER → 2018-09-08 | Outpatient (CLI) | payer OTHER, BC | LOC: BMCIMAGING 14:38 | PROVIDERS: ATTEND Physician Assistant | DX: Z09 Encounter for follow-up examination after completed treatment for conditions other than malignant neoplasm (principal); Z96.611 Presence of right artificial shoulder joint ==

== ENCOUNTER → 2018-09-23 | Outpatient (CLI) | payer OTHER, BC | LOC: FIMAGING 12:05 ==